=== PATIENT | female | born 1970 | race Caucasian/White ===

== ENCOUNTER 2020-05-28 05:47 | Inpatient (IN) | payer OTHER, SELFPAY ==
[~2020-05-28] VITALS: Ht 170.2 cm; Wt 111.6 kg
[2020-05-28] VITALS (15 sets, daily range): BP systolic 89–156
--- NOTE | 2020-05-28 05:50 | NUR ---
Placed in room 5 . Placed on cardiac specialist, blood pressure machine and pulse oximeter. To gown for exam. Side rails up. Report given to VERONICA WANG.
--- NOTE | 2020-05-28 05:50 | NUR ---
# 18 gauge angiocath placed to RAC. Use of asceptic technique. Opsite placed over site. Blood return noted. Blood, blood cultures, lactic for lab drawn from site. Flushed with 10 cc of normal saline. No evidence of infiltration noted. Patient tolerated well.
--- NOTE | 2020-05-28 05:55 | NUR ---
ER Dr. tariq at bedside examining patient.
[2020-05-28] MEDS ORDERED: NACL 0.9% 3,000 ML IV ONE (06:00)
[2020-05-28] MEDS ORDERED: ONDANSETRON HCL 4 MG/2 ML VIAL IVP ONE (06:00)
[2020-05-28] MEDS ORDERED: VANCOMYCIN HCL 1,000 MG in NS 250 ML IV ONE (06:00)
[2020-05-28] MEDS ORDERED: LIDOCAINE 1% 10 MG/ML, 20 ML MDV INJ ONE (06:00)
[2020-05-28] MEDS ORDERED: KETOROLAC TROMETHAMINE 30 MG VIAL IVP ONE (06:00)
--- NOTE | 2020-05-28 06:00 | NUR ---
PT BIB AMBULANCE. PT C/O SOB AND BUTTOCK PAIN. +TACHYPNEA. 02 SATURATION 96% ON ROOM AIR. PT DENIES ANY CHEST PAIN. PT DIAPHORETIC. PT C/O NAUSEA AND VOMITING X 3 DAYS. +NAUSEA NO EPISODES OF VOMITING IN ER. HX OF METH ABUSE. LAST USE 3 YEARS AGO. SAFETY PRECAUTIONS IN PLACE MAUDE CONITUE TO MONITOR.
--- NOTE | 2020-05-28 06:06 | NUR ---
Dr. Campos and female nurse Marylou, RN at bedside performing I & D on abscess on right buttcheek.
--- NOTE | 2020-05-28 06:22 | NUR ---
I&D Procedure done by Dr LAGUERRE to RIGHT BUTTCHEEK using sterile technique. Lidocaine 1% used. Wound packed with 1INCH IODOFORM PACKING . Adaptic, 4x4 and jose to wound. MODERATE amt of bleeding noted WITH PUS. Wound care discussed w/ patient. Pt tolerated procedure well.
[2020-05-28 06:29] LABS: BASOPHILS # (AUTO) 0.1 K/uL (0.0-0.2); BASOPHILS % (AUTO) 0.4 % (0.0-2.0); EOSINOPHILS % (AUTO) 0.1 % (0.0-4.0); HEMATOCRIT 49.2 % (36-48); HEMOGLOBIN 16.3 g/dL (12.0-16.0); LYMPHOCYTES # (AUTO) 1.2 K/uL (1.0-5.5); LYMPHOCYTES % (AUTO) 6.4 % (20.5-51.5); MEAN CORPUSCULAR HEMOGLOBIN 29 pg (27-31); MEAN CORPUSCULAR HGB CONC 33 % (32-36); MEAN CORPUSCULAR VOLUME 87 fL (79.0-98.0); MONOCYTES % (AUTO) 5.3 % (1.7-9.3); NEUTROPHILS # (AUTO) 16.3 K/uL (1.8-7.7); NEUTROPHILS % (AUTO) 87.8 % (40.0-70.0); PLATELET COUNT (AUTO) 493 K/uL (130-430); RED BLOOD CELL COUNT(AUTO) 5.65 MIL/uL (4.2-6.2); RED CELL DISTRIBUTION WIDTH 13.3 % (9.0-15.0); WHITE BLOOD COUNT (AUTO) 18.5 K/uL (4.8-10.8)
[2020-05-28 06:46] LABS: ALBUMIN 2.6 g/dL (3.4-4.8); CALCIUM 9.4 mg/dL (8.4-11.0); CREATININE 1.97 mg/dL (0.55-1.30); POTASSIUM 3.6 mmol/L (3.5-5.1); TOTAL BILIRUBIN 0.9 mg/dL (0.0-1.0)
[2020-05-28] MEDS ORDERED: INSULIN REGULAR, HUMAN 100 UNITS in NS 99 ML IV ONE ×2 (07:00)
[2020-05-28] MEDS ORDERED: VANCOMYCIN HCL 1000 MG/VIAL IV ONE (07:05)
--- NOTE | 2020-05-28 07:20 | NUR ---
MRSA SWAB COLLECTED AND SENT TO LAB.
--- NOTE | 2020-05-28 07:40 | NUR ---
PT LAYING IN BED. NO SIGNS OR SYMPTOMS OF DISTRESS NOTED. SBAR REPORT GIVEN TO SVEN WANG. CARE ENDORSED.
[2020-05-28 09:23] LABS: BILIRUBIN,URINE 3+ (NEGATIVE); BLOOD, URINE 3+ (NEGATIVE); CLARITY/URINE SL CLOUDY (CLEAR); COLOR,URINE YELLOW (YELLOW); GLUCOSE,URINE TRACE (NEGATIVE); KETONES,URINE 2+ (NEGATIVE); LEUKOCYTE ESTERASE ,URINE TRACE (NEGATIVE); NITRITE, URINE NEGATIVE (NEGATIVE); PROTEIN URINE 1+ (NEGATIVE)
--- NOTE | 2020-05-28 09:55 | NUR ---
Dr. Giron at bedside for evaluation
[2020-05-28] MEDS ORDERED: NACL 0.9% 1,000 ML IV SCH (10:15)
[2020-05-28] MEDS ORDERED: INSULIN REGULAR, HUMAN 100 UNITS in NS 99 ML IV PRN ×4 (10:15→12:15)
[2020-05-28] MEDS ORDERED: DEXTROSE 50% JECT 50 ML DISP.SYRIN IVP PRN ×2 (10:15→12:15)
[2020-05-28 10:30] LABS: BACTERIA,URINE MODERATE /HPF (None Seen); RBC,URINE 20-50 /HPF (0-3); YEAST,URINE Few /HPF (None Seen)
[2020-05-28] MEDS ORDERED: MUPIROCIN 2% TOPICAL OINTMENT 22 GM NS PRN (10:30)
[2020-05-28] MEDS ORDERED: ONDANSETRON HCL 4 MG/2 ML VIAL IVP PRN (10:30)
[2020-05-28] MEDS ORDERED: ACETAMINOPHEN 325 MG TABLET PO PRN (10:30)
[2020-05-28] MEDS ORDERED: MAGNESIUM SULFATE 50 ML IV PRN (10:30)
[2020-05-28] MEDS ORDERED: POTASSIUM CHLORIDE 20 MEQ TAB.PRT.SR PO PRN (10:30)
[2020-05-28] MEDS ORDERED: ZOLPIDEM TARTRATE 5 MG TABLET PO PRN (10:30)
[2020-05-28] MEDS ORDERED: LORazepam 2 MG/ML VIAL IVP PRN (10:30)
[2020-05-28] MEDS ORDERED: DOCUSATE SODIUM 100 MG CAPSULE PO PRN (10:30)
--- NOTE | 2020-05-28 10:50 | NUR ---
TO ICU. RECEIVED PT IN ROOM 5 VIA GURNEY, TRANSFERRED TO HER BED, PT ABLE TO MOVE INDEPENDENTLY, ON ROOM AIR, HEARD LAUGHING WITH THE ER STAFF, IV IN RIGHT A/C AND LEFT WRIST, IV VANCOMYCIN INFUSING, INSULIN DRIP AT 10 UNIT PER HR. DIRECTOR CONSUMER AFFAIRS ARRIVED IN THE UNIT, INSULIN OFF. BLOOD SAMPLE DRAWN AND SENT TO LAB FOR TEST.
[2020-05-28 11:09] LABS: BASOPHILS # (AUTO) 0.2 K/uL (0.0-0.2); BASOPHILS % (AUTO) 1.2 % (0.0-2.0); HEMATOCRIT 48.5 % (36-48); HEMOGLOBIN 15.9 g/dL (12.0-16.0); LYMPHOCYTES # (AUTO) 1.1 K/uL (1.0-5.5); LYMPHOCYTES % (AUTO) 5.5 % (20.5-51.5); MEAN CORPUSCULAR HEMOGLOBIN 29 pg (27-31); MEAN CORPUSCULAR HGB CONC 33 % (32-36); MEAN CORPUSCULAR VOLUME 88 fL (79.0-98.0); MONOCYTES # (AUTO) 1.6 K/uL (0.0-1.0); MONOCYTES % (AUTO) 8.1 % (1.7-9.3); NEUTROPHILS # (AUTO) 16.7 K/uL (1.8-7.7); NEUTROPHILS % (AUTO) 85.2 % (40.0-70.0); PLATELET COUNT (AUTO) 426 K/uL (130-430); RED BLOOD CELL COUNT(AUTO) 5.52 MIL/uL (4.2-6.2); RED CELL DISTRIBUTION WIDTH 13.2 % (9.0-15.0); WHITE BLOOD COUNT (AUTO) 19.6 K/uL (4.8-10.8)
--- NOTE | 2020-05-28 11:17 | NUR ---
FSBS. BLOOD SUGAR READING HI. REGULAR INSULIN RESUMED AT 10 UNIT PER HR.
[2020-05-28 11:27] LABS: ACETONE, SERUM LARGE (NEGATIVE)
[2020-05-28 11:29] LABS: ANION GAP 27 (5-15); CALCIUM 9.2 mg/dL (8.4-11.0); CHLORIDE 89 mmol/L (98-107); CREATININE 1.85 mg/dL (0.55-1.30); POTASSIUM 3.8 mmol/L (3.5-5.1); SODIUM SERUM 125 mmol/L (136-145); UREA NITROGEN, BLOOD 41 mg/dL (8-21)
--- NOTE | 2020-05-28 11:30 | NUR ---
PAGERenea CUMMINGS AT [phone] WITH A CONSULT
[2020-05-28 11:32] LABS: ALANINE AMINOTRANSFERASE 14 U/L (12-78); ASPARTATE AMINOTRANSFERASE 11 U/L (10-37); PHOSPHORUS 4.6 mg/dL (2.7-4.5); TOTAL BILIRUBIN 0.9 mg/dL (0.0-1.0)
--- NOTE | 2020-05-28 11:35 | NUR ---
CALLED DR. CORTÉS WITH A CONSULT, SPOKE WITH RODOLFO FROM [facility]
[2020-05-28 11:38] LABS: GFR AFRICAN AMERICAN 37 mL/min (>90)
--- NOTE | 2020-05-28 11:40 | NUR ---
CALLED DR. BEE WITH A CONSULT, SPOKE WITH MALA FROM [facility]
[2020-05-28 11:41] LABS: GLUCOSE 672 mg/dL (70-99)
[2020-05-28] MEDS: cefTRIAXone 1 GM in D5W 50 ML IV SCH (11:57)
[2020-05-28 12:05] LABS: ALBUMIN 2.3 g/dL (3.4-4.8)
[2020-05-28 12:09] LABS: ERYTHROCYTE SEDIMENTATION RATE 70 MM/HR (0-20)
--- NOTE | 2020-05-28 12:52 | NUR ---
FSBS. BLOOD SUGAR READING HI, REGULAR INSULIN REMAINS AT 10 UNIT PER HR.
--- NOTE | 2020-05-28 13:00 | NUR ---
IV. IV CATHETER IN RIGHT A/C KINKED AND D/CD. ANOTHER IV ACCESS INSERTED IN RIGHT WRIST USING 20 GAUGE CATHETER, GOOD BLOOD RETURN NOTED.
--- NOTE | 2020-05-28 13:53 | NUR ---
FSBS BLOOD SUGAR READING 567, INSULIN DRIP AT 10 UNIT PER HR.
[2020-05-28] MEDS ORDERED: CLINDAMYCIN 600 MG in D5W 50 ML IV ONE (15:00)
--- NOTE | 2020-05-28 15:11 | NUR ---
FSBS BLOOD SUGAR READING 463 MG/DL, INSULIN DRIP AT 10 UNIT PER HR.
[2020-05-28 15:38] LABS: CALCIUM 8.2 mg/dL (8.4-11.0); CREATININE 1.59 mg/dL (0.55-1.30); POTASSIUM 3.1 mmol/L (3.5-5.1)
[2020-05-28 15:45] LABS: PROTHROMBIN TIME 10.3 SECS (9.5-12.5)
--- NOTE | 2020-05-28 16:06 | NUR ---
Witnessed IV drip titration: Insulin drip titrated to 8 units/hr.
[2020-05-28] MEDS: POTASSIUM CHLORIDE 40 MEQ, LIDOCAINE JECT 2% PF 100 MG 50 MG in NS 250 ML IV PRN (16:36)
--- NOTE | 2020-05-28 16:36 | NUR ---
LOW K LEVEL. JORGE HUNG ORDERED, K LEVEL 3.1.
[2020-05-28] MEDS: NACL 0.9% 1,000 ML IV SCH (16:37)
--- NOTE | 2020-05-28 17:04 | NUR ---
Witnessed IV drip titration: Insulin drip titrated to 6 units/hr. BS - 291 MG/DL
--- NOTE | 2020-05-28 17:15 | NUR ---
TIME OUT. PICC NURSE AT BEDSIDE, VERIFIED PT'S INFORMATION AT BEDSIDE. CONSENT GIVEN BY PATIENT.
--- NOTE | 2020-05-28 18:55 | NUR ---
Witnessed IV drip titration: Insulin drip titrated to 6 units/hr. BS - 223 MG/DL.
--- NOTE | 2020-05-28 19:25 | NUR ---
OPENING NOTE Received SBAR report from off coming RN for continuity of care.
[2020-05-28] MEDS: FLUCONAZOLE 100 mg/ NS 50 ML IV SCH (20:00)
--- NOTE | 2020-05-28 20:00 | NUR ---
Pt laying in bed, alert and oriented x 4. Pt denies any pain or discomfort at the moment. Pt is cooperative and follows commands. Pt stating she is tired and thirsty. Provided water and ensured adequate environment for rest. Pt on RA with oxygen saturations above 90%. Right upper arm PICC line in place, insulin gtt infusing @ 2 units/hr, NS infusing @ 100 ml/hr. Pt self turning and repositioning. Will continue to monitor and assess.
[2020-05-28 20:01] LABS: BARBITURATE, URINE NEGATIVE (NEG <=200); BENZODIAZEPINE, URINE POSITIVE (NEG <=150); CANNABINOID, URINE NEGATIVE (NEG <=50); COCAINE, URINE NEGATIVE (NEG <=150); METHAMPHETAMINES SCREEN,URINE NEGATIVE (NEG <=500); OPIATE, URINE NEGATIVE (NEG <=100); PHENCYCLIDINE SCREEN,URINE NEGATIVE (NEG <=25); URINE AMPHETAMINE NEGATIVE (NEG <=500); URINE METHADONE NEGATIVE (NEG <=200); URINE OXYCODONE SCREEN NEGATIVE (NEG <=100)
[2020-05-28 20:02] LABS: UR TRICYCLIC ANTIDEPRESSANTS NEGATIVE (NEG <=300); URINE PROPOXYPHENE SCREEN NEGATIVE (NEG <=300)
--- NOTE | 2020-05-28 20:05 | NUR ---
INSULIN DRIP TITRATION BS 182. WITNESSED OSCAR WANG TITRATE INSULIN DRIP TO 2 UNITS/HR PER ORDERS. WILL CONTINUE TO MONITOR PT.
[2020-05-28 20:12] LABS: CALCIUM 8.5 mg/dL (8.4-11.0); CREATININE 1.23 mg/dL (0.55-1.30); POTASSIUM 3.1 mmol/L (3.5-5.1)
[2020-05-28 20:45] LABS: C-REACTIVE PROTEIN QUANT 29.2 mg/dL (0-0.5)
[2020-05-28] MEDS: HEPARIN SODIUM,PORCINE 5,000 UNITS/ML VIAL SUBCUT SCH (21:18)
--- NOTE | 2020-05-28 21:57 | NUR ---
PAGED DR. CAT: Number dialed [phone] Cat in regards to K lab and PRN order.
--- NOTE | 2020-05-28 22:00 | NUR ---
DR. BUNNY Tatum is manager transportation for Dr. Cat, spoke with Dr. Tatum in regards to K 3.1 since PRN order of KCL 40 MEQ, lidocaine jet 50 mg in 250 ml of NS is not available during NOC shift. Obtained telephone order for 40 MEQ KCL PO, read back to verify order. Will call back provider for verification and follow through with order as ordered.
--- NOTE | 2020-05-28 22:03 | NUR ---
HIGH ALERT NOTE: Called Dr. Tatum back at [phone] identified within the medical roster to verify physician authenticity.
[2020-05-28] MEDS ORDERED: POTASSIUM CHLORIDE 20 MEQ TAB.PRT.SR PO ONE (22:15)
[2020-05-28] MEDS: CLINDAMYCIN 600 MG in D5W 50 ML IV SCH (22:17)
[2020-05-28 23:22] LABS: CALCIUM 8.2 mg/dL (8.4-11.0); CREATININE 1.1 mg/dL (0.55-1.30); POTASSIUM 3.6 mmol/L (3.5-5.1)
[2020-05-29] VITALS (21 sets, daily range): BP systolic 109–166
--- NOTE | 2020-05-29 | NUR ---
INSULIN DRIP TITRATION BS 226. WITNESSED OSCAR WANG TITRATE INSULIN DRIP TO 5 UNITS/HR PER ORDERS. WILL CONTINUE TO MONITOR PT.
[2020-05-29] MEDS: NACL 0.9% 1,000 ML IV SCH ×2 (00:15→05:57)
--- NOTE | 2020-05-29 02:00 | NUR ---
INSULIN DRIP TITRATION BS 149. WITNESSED OSCAR WANG TITRATE INSULIN DRIP TO 1 UNIT/HR PER ORDERS. WILL CONTINUE TO MONITOR PT.
--- NOTE | 2020-05-29 03:00 | NUR ---
INSULIN DRIP TITRATION BS 187. WITNESSED OSCAR WANG TITRATE INSULIN DRIP TO 2 UNIT/HR PER ORDERS. WILL CONTINUE TO MONITOR PT.
[2020-05-29 03:16] LABS: CALCIUM 8.5 mg/dL (8.4-11.0); POTASSIUM 3.8 mmol/L (3.5-5.1)
[2020-05-29] MEDS: CLINDAMYCIN 600 MG in D5W 50 ML IV SCH ×2 (05:03→14:32)
[2020-05-29 05:26] LABS: CALCIUM 8.4 mg/dL (8.4-11.0); CREATININE 0.98 mg/dL (0.55-1.30); POTASSIUM 3.5 mmol/L (3.5-5.1)
[2020-05-29 05:48] LABS: BASOPHILS # (AUTO) 0.1 K/uL (0.0-0.2); BASOPHILS % (AUTO) 0.7 % (0.0-2.0); EOSINOPHILS % (AUTO) 0.1 % (0.0-4.0); HEMATOCRIT 39.5 % (36-48); HEMOGLOBIN 13.3 g/dL (12.0-16.0); LYMPHOCYTES # (AUTO) 1.3 K/uL (1.0-5.5); LYMPHOCYTES % (AUTO) 10.2 % (20.5-51.5); MEAN CORPUSCULAR HEMOGLOBIN 28 pg (27-31); MEAN CORPUSCULAR HGB CONC 34 % (32-36); MEAN CORPUSCULAR VOLUME 84 fL (79.0-98.0); MONOCYTES # (AUTO) 0.9 K/uL (0.0-1.0); MONOCYTES % (AUTO) 7.3 % (1.7-9.3); NEUTROPHILS # (AUTO) 10.3 K/uL (1.8-7.7); NEUTROPHILS % (AUTO) 81.7 % (40.0-70.0); PLATELET COUNT (AUTO) 327 K/uL (130-430); RED BLOOD CELL COUNT(AUTO) 4.71 MIL/uL (4.2-6.2); WHITE BLOOD COUNT (AUTO) 12.6 K/uL (4.8-10.8)
--- NOTE | 2020-05-29 06:00 | NUR ---
INSULIN DRIP TITRATION BS 282. WITNESSED OSCAR WANG TITRATE INSULIN DRIP TO 6 UNITS/HR PER ORDERS. WILL CONTINUE TO MONITOR PT.
--- NOTE | 2020-05-29 07:27 | NUR ---
CLOSING NOTE: Endorsed SBAR report to oncoming RN for continuity of care.
--- NOTE | 2020-05-29 07:30 | NUR ---
Opening Note Received bedside report from endorsing RN for continuation of care. Received patient awake and resting in bed, patient denies any pain or SOB at this time. No signs or symptoms of acute distress noted. Bed locked in lowest position, bed alarm on, and call light within reach. Education provided on use of call light. Fall and safety precautions in place.
[2020-05-29] MEDS: HEPARIN SODIUM,PORCINE 5,000 UNITS/ML VIAL SUBCUT SCH (08:10)
--- NOTE | 2020-05-29 08:15 | NUR ---
Witness insulin drip titration to 5 units/hr
--- NOTE | 2020-05-29 08:40 | NUR ---
Dr. Mills at bedside examining patient. No new orders.
--- NOTE | 2020-05-29 08:49 | NUR ---
Dr. Edmond at bedside examining patient. No new orders.
[2020-05-29] MEDS ORDERED: PANTOPRAZOLE SODIUM 40 MG/VIAL (PROTONIX) IVP SCH (09:00)
--- NOTE | 2020-05-29 09:30 | NUR ---
Witness insulin drip titration to 2 units/hr
[2020-05-29] MEDS: cefTRIAXone 1 GM in D5W 50 ML IV SCH (10:18)
--- NOTE | 2020-05-29 10:34 | NUR ---
Case mgt: Faxing clinical information to [facility] fax#[phone] and calling them at [phone]-- KATHLEEN
--- NOTE | 2020-05-29 10:41 | NUR ---
Case mgt: Per nurse Yaya, pt's blood sugar still fluctuation and insulin drip is requiring titration at this time. Yaya made aware this is [facility] pt--need transfer order to [facility] from [facility] once pt is stable. I s/w Chapito at [facility] and she said they received clinicals I faxed and auth'd ICU inpt stay with auth#[id number] and I made Chapito aware no transfer order at this time. Per Chapito, GUY is assigned as welfare case worker. MARY RN
--- NOTE | 2020-05-29 10:48 | NUR ---
Nutrition Update Brian Scale 16 noted. Pt admitted for DKA. Diet: clear liquid, CCHO low carb-45 gm BMI: 38.7 kg/m2 RD to follow per nutrition care standards.
[2020-05-29 11:06] LABS: CALCIUM 8.5 mg/dL (8.4-11.0); CREATININE 0.83 mg/dL (0.55-1.30); POTASSIUM 3.5 mmol/L (3.5-5.1)
--- NOTE | 2020-05-29 11:10 | NUR ---
2D ECHO 2D ECHO being done at bedside by photogrammetric technician.
--- NOTE | 2020-05-29 11:27 | NUR ---
Case mgt: Rec'd call back from Herbie at [facility] [phone]--Insulin drip down to 2ml/hr and last FE=311 per nurse Neida-I asked Neida to call to see if pt stable for transfer to [place]-- RN
--- NOTE | 2020-05-29 11:38 | NUR ---
Case mgt: Rec'd order for transfer to [place]--nurse Neida checking to see which level of care needed for pt and if insulin drip will be dc'd--faxing order to [facility] at [phone]
--- NOTE | 2020-05-29 13:15 | NUR ---
Witness insulin drip titration to 5 units/hr
--- NOTE | 2020-05-29 13:17 | NUR ---
Assisted patient to sit up for lunch. All needs met.
--- NOTE | 2020-05-29 14:11 | NUR ---
Case mgt: Per FIDELIA Albright back up to 202--insulin drip titrated back up to 5 units/hr (previously at 2 units/hr)--Rec'd transfer order to transfer to [facility] ICU on insulin drip-faxed order to [place] [facility] and calling Herbie at [facility] [phone] to inform her of order--MARY WANG Addendum: 05/29/20 at 1424 by Naheed Spears RN I s/w Herbie at [facility]-re: transfer order--she will work on it and aware pt on insulin drip--I faxed Covid-19 results (neg) and nurse Carrasquillo confirming with pt that she is agreeable to transfer to [facility] hospital. MARY WANG
[2020-05-29 15:46] LABS: CALCIUM 8.7 mg/dL (8.4-11.0); CREATININE 0.93 mg/dL (0.55-1.30); POTASSIUM 3.3 mmol/L (3.5-5.1)
--- NOTE | 2020-05-29 15:50 | NUR ---
Witness insulin drip titration to 2 units/hr
--- NOTE | 2020-05-29 16:24 | NUR ---
Transfer packet taken to ICU nurse station--they will f/u with radiology for xray juana-MARY WANG
[2020-05-29] MEDS: POTASSIUM CHLORIDE 40 MEQ, LIDOCAINE JECT 2% PF 100 MG 50 MG in NS 250 ML IV PRN (17:06)
--- NOTE | 2020-05-29 17:35 | NUR ---
Dietitian Recommendations * Recommend continuing [facility] [place] diet * Encourage increase PO intakes LP, RD Please refer to Nutrition Assessment for details. Addendum: 05/29/20 at [address] Amended: Links added.
[2020-05-29] MEDS: FLUCONAZOLE 100 mg/ NS 50 ML IV SCH (17:59)
--- NOTE | 2020-05-29 18:00 | NUR ---
Witness insulin drip titration to 1 unit/hr
[2020-05-29 18:20] LABS: CALCIUM 8.4 mg/dL (8.4-11.0); CREATININE 0.64 mg/dL (0.55-1.30); POTASSIUM 3.7 mmol/L (3.5-5.1)
--- NOTE | 2020-05-29 18:34 | NUR ---
Transfer Report to [facility] Report given to Lesly at 1834 via phone.
--- NOTE | 2020-05-29 18:45 | NUR ---
Witness insulin drip titration to 2 units/hr.
--- NOTE | 2020-05-29 19:14 | NUR ---
Closing Note Endorsed bedside report to oncoming RN using SBAR approach for continuation of care.
--- NOTE | 2020-05-29 19:45 | NUR ---
PERSONNEL FROM [facility] HERE TO EGG SMELLER PT. REPORT GIVEN.
--- NOTE | 2020-05-29 20:15 | NUR ---
PT TO BE TRANSFERRED TO [facility], RM 2314. PT BROUGHT VIA GURNEY TO AMBULANCE WITH ALL BELONGINGS IN SATISFACTORY CONDITION.
[2020-05-29] MEDS ORDERED: ENOXAPARIN SODIUM 30 MG/0.3 ML SYRINGE SUBCUT SCH (21:00)
== END 2020-05-29 20:15 | disposition short-term general hospital (02) | DRG 871 ==
LOC: SED 05:47 → SIC 10:09
PROVIDERS: ADMIT General Practice; ATTEND General Practice
PROC: 02HV33Z Insertion of Infusion Device into Superior Vena Cava, Percutaneous Approach (ICD-10-PCS; principal; 2020-05-28)
PROC: 0H98XZZ Drainage of Buttock Skin, External Approach (ICD-10-PCS; 2020-05-28)
DX: A41.9 Sepsis, unspecified organism (principal); E11.10 Type 2 diabetes mellitus with ketoacidosis without coma; E43 Unspecified severe protein-calorie malnutrition; N17.0 Acute kidney failure with tubular necrosis; B37.49 Other urogenital candidiasis; E66.2 Morbid (severe) obesity with alveolar hypoventilation; I42.9 Cardiomyopathy, unspecified; L02.31 Cutaneous abscess of buttock; Z68.42 Body mass index [BMI] 45.0-49.9, adult; E87.1 Hypo-osmolality and hyponatremia; F17.210 Nicotine dependence, cigarettes, uncomplicated; F15.10 Other stimulant abuse, uncomplicated; F41.9 Anxiety disorder, unspecified; J44.9 Chronic obstructive pulmonary disease, unspecified; N61.1 Abscess of the breast and nipple; Z79.4 Long term (current) use of insulin; Z91.14 Patient's other noncompliance with medication regimen; Z91.19 Patient's noncompliance with other medical treatment and regimen; Z20.828 Contact with and (suspected) exposure to other viral communicable diseases
CPT/HCPCS: 36415; 36600; 71045; 80048; 80053; 80307; 81000-TC; 82009-TC; 82803-TC; 82962; 83036; 83605; 83735-TC; 84100-TC; 84484; 85025; 85379; 85610-TC; 85651-TC; 85730-TC; 86140; 87040-TC; 87081; 87086; 93005; 93306; 94010; 96365; 96375; 99291; J0696; J1450; J1815; J1885; J2405; J3370; J3480; J3490; J7050; J7060

== ENCOUNTER 2023-02-14 10:07 | Inpatient (IN) | payer OTHER ==
[2023-02-14] VITALS (20 sets, daily range): BP systolic 95–157; PULSE 120–139; RESP 17–39; TEMP 96.2–98.7; O2SAT 94–100
[~2023-02-14] VITALS: Ht 157.5 cm; Wt 117.7 kg
[2023-02-14] MEDS ORDERED: NACL 0.9% 2,000 ML IV ONE (10:30)
[2023-02-14 10:43] LABS: ABG O2 SAT% ESTIMATE 98.5 % (94.0-100.0); BLOOD GAS BASE EXCESS -29.8 mmol/L (-3.0-3.0); BLOOD GAS PO2 208.6 mmHg (75.0-100.0)
[2023-02-14 10:46] LABS: BLOOD GAS PCO2 13.7 mmHg (35.0-45.0); BLOOD GAS PH 6.874 (7.350-7.450)
[2023-02-14 10:47] LABS: ALLEN'S TEST POSITIVE (P); BLOOD GAS HCO3 2.5 mmol/L (21.0-27.0)
[2023-02-14] MEDS ORDERED: SODIUM BICARBONATE 8.4% JECT 150 MEQ in D5W 1,000 ML IVP STA (10:52)
[2023-02-14 11:01] LABS: BASOPHILS # (AUTO) 0.1 K/uL (0.0-0.2); BASOPHILS % (AUTO) 0.3 % (0.0-2.0); EOSINOPHILS % (AUTO) 0.1 % (0.0-4.0); HEMATOCRIT 39.3 % (36-48); HEMOGLOBIN 11.9 g/dL (12.0-16.0); LYMPHOCYTES # (AUTO) 1.9 K/uL (1.0-5.5); MEAN CORPUSCULAR HEMOGLOBIN 29 pg (27-31); MEAN CORPUSCULAR HGB CONC 30 % (32-36); MEAN CORPUSCULAR VOLUME 94 fL (79.0-98.0); MONOCYTES # (AUTO) 1.7 K/uL (0.0-1.0); MONOCYTES % (AUTO) 7.3 % (1.7-9.3); NEUTROPHILS # (AUTO) 19.7 K/uL (1.8-7.7); NEUTROPHILS % (AUTO) 84.3 % (40.0-70.0); PLATELET COUNT (AUTO) 668 K/uL (130-430); RED BLOOD CELL COUNT(AUTO) 4.17 MIL/uL (4.2-6.2); RED CELL DISTRIBUTION WIDTH 14.6 % (9.0-15.0)
[2023-02-14 11:22] LABS: WHITE BLOOD COUNT (AUTO) 23.4 K/uL (4.8-10.8)
[2023-02-14 11:24] LABS: ERYTHROCYTE SEDIMENTATION RATE 107 MM/HR (0-20); INR 1.1 (0.8-1.2); PROTHROMBIN TIME 11.6 SECS (9.5-12.5)
[2023-02-14] MEDS ORDERED: CLINDAMYCIN 900 mg/50mL D5W 50 ML IV ONE (11:30)
[2023-02-14] MEDS ORDERED: PIPERACILLIN/TAZO 3.375 GM in NS 50 ML IV ONE (11:30)
[2023-02-14] MEDS ORDERED: VANCOMYCIN HCL 1.25 GM/NS 250 ML IV ONE (11:30)
[2023-02-14] MEDS ORDERED: SODIUM BICARBONATE 8.4% JECT 50 MEQ/50 ML SYRINGE ONE ×2 (11:31→14:22)
[2023-02-14] MEDS ORDERED: PIPERACILLIN/TAZOBACTAM 3.375 GM/VIAL (ZOSYN) IV ONE (11:49)
[2023-02-14 11:57] LABS: ACETAMINOPHEN 15 ug/mL (1-30); ALANINE AMINOTRANSFERASE 30 U/L (12-78); ALBUMIN 1.8 g/dL (3.4-4.8); ANION GAP 22 (5-15); ASPARTATE AMINOTRANSFERASE 30 U/L (10-37); CHLORIDE 110 mmol/L (98-107); CREATININE 1.41 mg/dL (0.55-1.30); GFR AFRICAN AMERICAN 50 mL/min (>90); PHOSPHORUS 4.5 mg/dL (2.7-4.5); POTASSIUM 3.8 mmol/L (3.5-5.1); SALICYLATE 3 mg/dL (3-30); SODIUM SERUM 138 mmol/L (136-145); THYROID STIMULATING HORMONE 7.49 uIu/mL (0.36-3.74); TOTAL BILIRUBIN 0.2 mg/dL (0.0-1.0); TOTAL PROTEIN, SERUM 5.9 g/dL (6.4-8.3); UREA NITROGEN, BLOOD 17 mg/dL (8-21)
[2023-02-14 12:00] LABS: ALCOHOL, BLOOD < 3 mg/dL (<10); CALCIUM 6.8 mg/dL (8.4-11.0); CARBON DIOXIDE 6 mmol/L (23-29); GFR NON AFRICAN-AMERICAN 41 mL/min (>90); GLUCOSE 401 mg/dL (74-106)
[2023-02-14] MEDS ORDERED: POTASSIUM CHLORIDE 30 MEQ in NS 250 ML IV SCH (12:15)
[2023-02-14] MEDS ORDERED: KCL 20 mEq in D5/0.45NS 1000mL 1,000 ML IV SCH (12:15)
[2023-02-14] MEDS ORDERED: MAGNESIUM SULFATE 50 ML IV SCH (12:15)
[2023-02-14] MEDS ORDERED: KCL 10 mEq in 50 mL (PREMIX) 50 ML IV SCH (12:15)
[2023-02-14] MEDS ORDERED: POTASSIUM CHLORIDE 40 MEQ in NS 250 ML IV SCH ×2 (12:15→13:15)
[2023-02-14] MEDS ORDERED: DEXTROSE 50% JECT 50 ML DISP.SYRIN IVP PRN ×3 (12:15→13:15)
[2023-02-14] MEDS ORDERED: KCL 20 mEq in 100 mL (PREMIX) 100 ML IV SCH (12:15)
[2023-02-14] MEDS ORDERED: INSULIN REGULAR, HUMAN 100 UNITS in NS 99 ML IV PRN ×4 (12:15→13:15)
[2023-02-14] MEDS ORDERED: CALCIUM GLUCONATE 1 GM/10 ML VIAL IVP ONE (12:30)
[2023-02-14] MEDS ORDERED: LORazepam 2 MG/ML VIAL IVP PRN (13:15)
[2023-02-14] MEDS ORDERED: ZOLPIDEM TARTRATE 5 MG TABLET PO PRN (13:15)
[2023-02-14] MEDS ORDERED: MUPIROCIN 2% TOPICAL OINTMENT 22 GM NS PRN (13:15)
[2023-02-14] MEDS ORDERED: MORPHINE 2 MG/ML INJ. SYRINGE IVP PRN ×2 (13:15)
[2023-02-14] MEDS ORDERED: POTASSIUM CHLORIDE 20 MEQ TAB.PRT.SR PO PRN (13:15)
[2023-02-14] MEDS ORDERED: ACETAMINOPHEN 325 MG TABLET PO PRN (13:15)
[2023-02-14] MEDS ORDERED: NACL 0.9% 1,000 ML IV SCH (13:15)
[2023-02-14] MEDS ORDERED: MAGNESIUM SULFATE 50 ML IV PRN (13:15)
[2023-02-14] MEDS ORDERED: DOCUSATE SODIUM 100 MG CAPSULE PO PRN (13:15)
[2023-02-14 13:19] LABS: ABG O2 SAT% ESTIMATE 98.9 % (94.0-100.0); BLOOD GAS BASE EXCESS -29.2 mmol/L (-3.0-3.0); BLOOD GAS PO2 242.5 mmHg (75.0-100.0)
[2023-02-14 13:24] LABS: BLOOD GAS PH 6.893 (7.350-7.450)
[2023-02-14 13:25] LABS: ALLEN'S TEST POSITIVE (P); BLOOD GAS HCO3 2.6 mmol/L (21.0-27.0)
[2023-02-14 14:16] LABS: MEAN CORPUSCULAR HEMOGLOBIN 29 pg (27-31); MEAN CORPUSCULAR HGB CONC 30 % (32-36); MEAN CORPUSCULAR VOLUME 96 fL (79.0-98.0); RED BLOOD CELL COUNT(AUTO) 4.91 MIL/uL (4.2-6.2); RED CELL DISTRIBUTION WIDTH 15.6 % (9.0-15.0)
[2023-02-14 14:29] LABS: ACETONE, SERUM POSITIVE (NEGATIVE); PLATELET COUNT (AUTO) 837 K/uL (130-430); WHITE BLOOD COUNT (AUTO) 34.1 K/uL (4.8-10.8)
[2023-02-14 14:38] LABS: ALANINE AMINOTRANSFERASE 44 U/L (12-78); ALBUMIN 2.7 g/dL (3.4-4.8); ANION GAP 27 (5-15); ASPARTATE AMINOTRANSFERASE 144 U/L (10-37); CHLORIDE 99 mmol/L (98-107); CREATININE 1.94 mg/dL (0.55-1.30); GFR AFRICAN AMERICAN 35 mL/min (>90); PHOSPHORUS 6.5 mg/dL (2.7-4.5); POTASSIUM 5.3 mmol/L (3.5-5.1); SODIUM SERUM 131 mmol/L (136-145); TOTAL BILIRUBIN 0.3 mg/dL (0.0-1.0); TOTAL PROTEIN, SERUM 8.6 g/dL (6.4-8.3); UREA NITROGEN, BLOOD 24 mg/dL (8-21)
[2023-02-14] MEDS ORDERED: PHENYLEPHRINE HCL 100 MG in NS 240 ML IV PRN (14:45)
[2023-02-14 14:54] LABS: CARBON DIOXIDE 5 mmol/L (23-29)
[2023-02-14 14:55] LABS: GLUCOSE 513 mg/dL (74-106)
[2023-02-14 14:57] LABS: ATYPICAL LYMPHOCYTES % 0 % (0-0); BAND % (MANUAL) 15 % (0-6); BASOPHILS % (MANUAL) 0 % (0-2); EOSINOPHILS % (MANUAL) 0 % (0-7); LYMPHOCYTES % (MANUAL) 4 % (20-46); MONOCYTES % (MANUAL) 6 % (0-11); PLATELET ESTIMATE INCREASED (ADEQUATE); SMUDGE CELLS RARE
[2023-02-14] MEDS ORDERED: ETOMIDATE 20 MG/ 10 ML VIAL (AMIDATE) IVP ONE (15:00)
[2023-02-14] MEDS ORDERED: ROCURONIUM BROMIDE 10 MG/ML (ZEMURON) IV ONE (15:00)
[2023-02-14 15:09] LABS: HEMOGLOBIN A1C 12.31 % (<5.7)
[2023-02-14 16:07] LABS: ABG O2 SAT% ESTIMATE 99.5 % (94.0-100.0); BLOOD GAS BASE EXCESS -29.6 mmol/L (-3.0-3.0); BLOOD GAS PCO2 34.2 mmHg (35.0-45.0); BLOOD GAS PO2 432.6 mmHg (75.0-100.0)
[2023-02-14 16:14] LABS: ALLEN'S TEST POSITIVE (P); BLOOD GAS HCO3 5.1 mmol/L (21.0-27.0); BLOOD GAS PH 6.791 (7.350-7.450)
[2023-02-14] MEDS ORDERED: SODIUM BICARBONATE 8.4% JECT 50 MEQ/50 ML SYRINGE IVP ONE (17:00)
[2023-02-14] MEDS ORDERED: SILVER SULFADIAZINE 1%, 25 GM TOPICAL CREAM (SSD) TP ONE (17:15)
[2023-02-14] MEDS: PROPOFOL DRIP 100 ML IV PRN (18:22)
[2023-02-14 18:30] LABS: BLOOD, URINE 1+ (NEGATIVE); CLARITY/URINE CLOUDY (CLEAR); COLOR,URINE YELLOW (YELLOW); GLUCOSE,URINE NEGATIVE (NEGATIVE); KETONES,URINE TRACE (NEGATIVE); LEUKOCYTE ESTERASE ,URINE TRACE (NEGATIVE); NITRITE, URINE NEGATIVE (NEGATIVE); PROTEIN URINE 3+ (NEGATIVE); UROBILINOGEN,URINE 0.2 (0.2-1.0)
[2023-02-14 18:41] LABS: CALCIUM 9.2 mg/dL (8.4-11.0); CREATININE 2.43 mg/dL (0.55-1.30); POTASSIUM 4.7 mmol/L (3.5-5.1)
[2023-02-14] MEDS: D5/0.45 NS 1,000 ML IV SCH (18:45)
[2023-02-14 18:48] LABS: BARBITURATE, URINE NEGATIVE (NEG <=200); BENZODIAZEPINE, URINE POSITIVE (NEG <=150); CANNABINOID, URINE NEGATIVE (NEG <=50); COCAINE, URINE NEGATIVE (NEG <=150); METHAMPHETAMINES SCREEN,URINE NEGATIVE (NEG <=500); OPIATE, URINE NEGATIVE (NEG <=100); PHENCYCLIDINE SCREEN,URINE NEGATIVE (NEG <=25); URINE AMPHETAMINE NEGATIVE (NEG <=500); URINE METHADONE NEGATIVE (NEG <=200); URINE OXYCODONE SCREEN NEGATIVE (NEG <=100); URINE PROPOXYPHENE SCREEN NEGATIVE (NEG <=300)
[2023-02-14 18:49] LABS: UR TRICYCLIC ANTIDEPRESSANTS NEGATIVE (NEG <=300)
[2023-02-14] MEDS: CEFEPIME 2 GM in D5W 100 ML IV SCH (18:51)
[2023-02-14] MEDS: IPRATROPIUM/ALBUTEROL SULFATE 3 ML AMPUL.NEB (DUONEB) INH SCH (19:00)
[2023-02-14 19:09] LABS: BILIRUBIN,URINE NEGATIVE (NEGATIVE)
[2023-02-14 19:10] LABS: BACTERIA,URINE MODERATE /HPF (None Seen); URINE AMORPHOUS URATE 2+ /HPF (None Seen); YEAST,URINE Many /HPF (None Seen)
[2023-02-14 19:11] LABS: MUCUS,URINE None Seen /LPF (None Seen)
[2023-02-14] MEDS ORDERED: DIPH25CA83 PO (20:25)
[2023-02-14] MEDS ORDERED: SSNPH SQ (20:25)
[2023-02-14] MEDS ORDERED: ACET325C5 PO (20:25)
[2023-02-14] MEDS ORDERED: LIDOINT TP (20:25)
[2023-02-14] MEDS ORDERED: GLIP5TAB13 PO (20:25)
[2023-02-14] MEDS: HEPARIN SODIUM,PORCINE 5,000 UNITS/ML VIAL SUBCUT SCH (20:44)
[2023-02-14] MEDS: LACTULOSE 20 GM/30 ML UDC PO SCH (20:59)
[2023-02-14] MEDS: HONEY WOUND DRESSING 1 EACH TP SCH (21:00)
[2023-02-14] MEDS: SILVER SULFADIAZINE 1%, 25 GM TOPICAL CREAM (SSD) TP SCH (21:00)
[2023-02-14 21:24] LABS: ABG O2 SAT% ESTIMATE 99.6 % (94.0-100.0); BLOOD GAS PCO2 23.7 mmHg (35.0-45.0); BLOOD GAS PO2 315.4 mmHg (75.0-100.0)
[2023-02-14 21:28] LABS: ALLEN'S TEST POSITIVE (P); BLOOD GAS HCO3 9.1 mmol/L (21.0-27.0); BLOOD GAS PH 7.201 (7.350-7.450)
[2023-02-15] VITALS (35 sets, daily range): BP systolic 104–163; PULSE 110–134; RESP 28–37; TEMP 98–98.9; O2SAT 97–100
[2023-02-15] MEDS: CLINDAMYCIN 300 MG/50 ML D5W 50 ML IV SCH ×4 (00:03→18:09)
[2023-02-15 00:07] LABS: CALCIUM 9.5 mg/dL (8.4-11.0); CREATININE 2.72 mg/dL (0.55-1.30); POTASSIUM 3.9 mmol/L (3.5-5.1)
[2023-02-15] MEDS: IPRATROPIUM/ALBUTEROL SULFATE 3 ML AMPUL.NEB (DUONEB) INH SCH ×4 (01:00→19:34)
[2023-02-15 02:36] LABS: CALCIUM 9.4 mg/dL (8.4-11.0); CREATININE 2.92 mg/dL (0.55-1.30)
[2023-02-15] MEDS: D5/0.45 NS 1,000 ML IV SCH ×2 (05:04→14:14)
[2023-02-15] MEDS: PROPOFOL DRIP 100 ML IV PRN ×3 (05:15→20:17)
[2023-02-15 06:50] LABS: BASOPHILS % (AUTO) 0.2 % (0.0-2.0); EOSINOPHILS % (AUTO) 0.2 % (0.0-4.0); HEMATOCRIT 39.1 % (36-48); HEMOGLOBIN 12.2 g/dL (12.0-16.0); LYMPHOCYTES # (AUTO) 1.2 K/uL (1.0-5.5); LYMPHOCYTES % (AUTO) 5.3 % (20.5-51.5); MEAN CORPUSCULAR HEMOGLOBIN 28 pg (27-31); MEAN CORPUSCULAR HGB CONC 31 % (32-36); MEAN CORPUSCULAR VOLUME 91 fL (79.0-98.0); MONOCYTES # (AUTO) 2.5 K/uL (0.0-1.0); MONOCYTES % (AUTO) 11.7 % (1.7-9.3); NEUTROPHILS % (AUTO) 82.6 % (40.0-70.0); PLATELET COUNT (AUTO) 588 K/uL (130-430); RED BLOOD CELL COUNT(AUTO) 4.29 MIL/uL (4.2-6.2); RED CELL DISTRIBUTION WIDTH 14.8 % (9.0-15.0); WHITE BLOOD COUNT (AUTO) 21.8 K/uL (4.8-10.8)
[2023-02-15 07:10] LABS: CALCIUM 9.4 mg/dL (8.4-11.0); CREATININE 3.26 mg/dL (0.55-1.30); POTASSIUM 4.3 mmol/L (3.5-5.1)
[2023-02-15] MEDS: HONEY WOUND DRESSING 1 EACH TP SCH ×2 (08:19→21:24)
[2023-02-15] MEDS: LACTULOSE 20 GM/30 ML UDC PO SCH ×2 (08:19→21:20)
[2023-02-15] MEDS: SILVER SULFADIAZINE 1%, 25 GM TOPICAL CREAM (SSD) TP SCH ×2 (08:20→21:23)
[2023-02-15] MEDS: HEPARIN SODIUM,PORCINE 5,000 UNITS/ML VIAL SUBCUT SCH (08:23)
[2023-02-15 09:26] LABS: ABG O2 SAT% ESTIMATE 98.4 % (94.0-100.0); BLOOD GAS PCO2 21.2 mmHg (35.0-45.0); BLOOD GAS PO2 136.8 mmHg (75.0-100.0)
[2023-02-15 09:29] LABS: ALLEN'S TEST POSITIVE (P); BLOOD GAS BASE EXCESS -15.3 mmol/L (-3.0-3.0); BLOOD GAS HCO3 9.4 mmol/L (21.0-27.0); BLOOD GAS PH 7.264 (7.350-7.450)
[2023-02-15] MEDS ORDERED: SODIUM BICARBONATE 8.4% JECT 50 MEQ/50 ML SYRINGE IVP ONE (10:00)
[2023-02-15 10:39] LABS: CALCIUM 9.1 mg/dL (8.4-11.0); CREATININE 3.71 mg/dL (0.55-1.30)
[2023-02-15] MEDS ORDERED: *HEPARIN PER PHARMACY XX ONE (10:45)
[2023-02-15] MEDS ORDERED: HEPARIN SODIUM,PORCINE 3000 UNITS/0.6 ML BOLUS IVP PRN (11:15)
[2023-02-15] MEDS ORDERED: HEPARIN SODIUM,PORCINE 2000 UNITS/0.4 ML BOLUS IVP PRN (11:15)
[2023-02-15] MEDS: HEPARIN 25,000 UNITS in 250 ML PREMIX IV PRN (13:21)
[2023-02-15] MEDS: FLUCONAZOLE 100 mg/ NS 50 ML IV SCH (14:05)
[2023-02-15] MEDS ORDERED: FUROSEMIDE 20 MG/2 ML VIAL IVP ONE (14:15)
[2023-02-15] MEDS ORDERED: VANCOMYCIN HCL 1,000 MG in NS 250 ML IV SCH (15:00)
[2023-02-15 15:14] LABS: CALCIUM 9.2 mg/dL (8.4-11.0); CREATININE 4.05 mg/dL (0.55-1.30); POTASSIUM 3.7 mmol/L (3.5-5.1)
[2023-02-15] MEDS: CEFEPIME 2 GM in D5W 100 ML IV SCH (18:09)
[2023-02-15 18:24] LABS: CALCIUM 9.1 mg/dL (8.4-11.0); CREATININE 4.35 mg/dL (0.55-1.30); POTASSIUM 3.5 mmol/L (3.5-5.1)
[2023-02-15 22:28] LABS: CALCIUM 9.2 mg/dL (8.4-11.0); CREATININE 4.61 mg/dL (0.55-1.30); POTASSIUM 3.5 mmol/L (3.5-5.1)
[2023-02-16] VITALS (33 sets, daily range): BP systolic 118–157; PULSE 96–118; RESP 24–31; TEMP 96.8–98.6; O2SAT 97–100
[2023-02-16] MEDS: CLINDAMYCIN 300 MG/50 ML D5W 50 ML IV SCH ×2 (00:12→06:16)
[2023-02-16] MEDS: D5/0.45 NS 1,000 ML IV SCH ×3 (00:15→21:43)
[2023-02-16] MEDS: IPRATROPIUM/ALBUTEROL SULFATE 3 ML AMPUL.NEB (DUONEB) INH SCH ×3 (01:00→19:36)
[2023-02-16] MEDS: PROPOFOL DRIP 100 ML IV PRN ×5 (01:28→22:41)
[2023-02-16 04:52] LABS: BASOPHILS # (AUTO) 0.1 K/uL (0.0-0.2); BASOPHILS % (AUTO) 0.3 % (0.0-2.0); EOSINOPHILS % (AUTO) 0.3 % (0.0-4.0); HEMATOCRIT 34.5 % (36-48); HEMOGLOBIN 11.1 g/dL (12.0-16.0); LYMPHOCYTES # (AUTO) 1.5 K/uL (1.0-5.5); LYMPHOCYTES % (AUTO) 9.1 % (20.5-51.5); MEAN CORPUSCULAR HEMOGLOBIN 28 pg (27-31); MEAN CORPUSCULAR HGB CONC 32 % (32-36); MEAN CORPUSCULAR VOLUME 88 fL (79.0-98.0); MONOCYTES # (AUTO) 1.8 K/uL (0.0-1.0); MONOCYTES % (AUTO) 10.9 % (1.7-9.3); NEUTROPHILS # (AUTO) 13.1 K/uL (1.8-7.7); NEUTROPHILS % (AUTO) 79.4 % (40.0-70.0); PLATELET COUNT (AUTO) 578 K/uL (130-430); RED BLOOD CELL COUNT(AUTO) 3.91 MIL/uL (4.2-6.2); RED CELL DISTRIBUTION WIDTH 14.7 % (9.0-15.0); WHITE BLOOD COUNT (AUTO) 16.4 K/uL (4.8-10.8)
[2023-02-16 04:53] LABS: CALCIUM 8.9 mg/dL (8.4-11.0); CREATININE 5.02 mg/dL (0.55-1.30); POTASSIUM 3.6 mmol/L (3.5-5.1)
[2023-02-16 04:58] LABS: VANCOMYCIN,RANDOM 32.2 ug/mL
[2023-02-16] MEDS: LACTULOSE 20 GM/30 ML UDC PO SCH ×2 (08:12→21:44)
[2023-02-16] MEDS: HONEY WOUND DRESSING 1 EACH TP SCH ×2 (08:22→21:45)
[2023-02-16] MEDS: SILVER SULFADIAZINE 1%, 25 GM TOPICAL CREAM (SSD) TP SCH ×2 (08:22→21:44)
[2023-02-16 09:07] LABS: CALCIUM 8.9 mg/dL (8.4-11.0); CREATININE 5.36 mg/dL (0.55-1.30); POTASSIUM 3.4 mmol/L (3.5-5.1)
[2023-02-16 13:10] LABS: CALCIUM 8.7 mg/dL (8.4-11.0); CREATININE 5.58 mg/dL (0.55-1.30); POTASSIUM 3.3 mmol/L (3.5-5.1)
[2023-02-16] MEDS: FLUCONAZOLE 100 mg/ NS 50 ML IV SCH (14:26)
[2023-02-16] MEDS: LINEZOLID 300 ML IV SCH (15:53)
[2023-02-16] MEDS ORDERED: INSULIN REGULAR, HUMAN 10 UNITS/0.1 ML, 3 ML VIAL IVP ONE (16:00)
[2023-02-16 16:12] LABS: ABG O2 SAT% ESTIMATE 99.9 % (94.0-100.0); BLOOD GAS BASE EXCESS -13.7 mmol/L (-3.0-3.0); BLOOD GAS PCO2 22.6 mmHg (35.0-45.0); BLOOD GAS PO2 518.6 mmHg (75.0-100.0)
[2023-02-16 16:45] LABS: CREATININE 5.7 mg/dL (0.55-1.30); POTASSIUM 3.2 mmol/L (3.5-5.1)
[2023-02-16 18:14] LABS: BLOOD GAS HCO3 10.6 mmol/L (21.0-27.0)
[2023-02-16 18:15] LABS: ALLEN'S TEST POSITIVE (P)
[2023-02-16] MEDS ORDERED: HEPARIN SODIUM,PORCINE 5,000 UNITS/ML VIAL MC ONE (19:00)
[2023-02-16] MEDS: CEFEPIME 2 GM in D5W 100 ML IV SCH (19:11)
[2023-02-16 20:04] LABS: CALCIUM 8.7 mg/dL (8.4-11.0); CREATININE 4.24 mg/dL (0.55-1.30)
[2023-02-16 20:08] LABS: POTASSIUM 2.9 mmol/L (3.5-5.1)
[2023-02-17] VITALS (34 sets, daily range): BP systolic 109–168; PULSE 88–117; RESP 11–32; TEMP 97–98.6; O2SAT 96–100
[2023-02-17] MEDS: IPRATROPIUM/ALBUTEROL SULFATE 3 ML AMPUL.NEB (DUONEB) INH SCH ×4 (00:45→19:31)
[2023-02-17 01:57] LABS: CALCIUM 8.3 mg/dL (8.4-11.0); CREATININE 4.58 mg/dL (0.55-1.30); POTASSIUM 3.3 mmol/L (3.5-5.1)
[2023-02-17] MEDS: LINEZOLID 300 ML IV SCH ×2 (01:59→16:44)
[2023-02-17] MEDS: PROPOFOL DRIP 100 ML IV PRN ×4 (03:22→23:33)
[2023-02-17 06:13] LABS: BASOPHILS % (AUTO) 0.3 % (0.0-2.0); EOSINOPHILS # (AUTO) 0.1 K/uL (0.0-0.4); EOSINOPHILS % (AUTO) 0.6 % (0.0-4.0); HEMATOCRIT 30.6 % (36-48); LYMPHOCYTES # (AUTO) 1.5 K/uL (1.0-5.5); LYMPHOCYTES % (AUTO) 8.9 % (20.5-51.5); MEAN CORPUSCULAR HEMOGLOBIN 28 pg (27-31); MEAN CORPUSCULAR HGB CONC 33 % (32-36); MEAN CORPUSCULAR VOLUME 86 fL (79.0-98.0); MONOCYTES # (AUTO) 1.2 K/uL (0.0-1.0); MONOCYTES % (AUTO) 7.5 % (1.7-9.3); NEUTROPHILS # (AUTO) 13.6 K/uL (1.8-7.7); NEUTROPHILS % (AUTO) 82.7 % (40.0-70.0); PLATELET COUNT (AUTO) 499 K/uL (130-430); RED BLOOD CELL COUNT(AUTO) 3.54 MIL/uL (4.2-6.2); RED CELL DISTRIBUTION WIDTH 14.3 % (9.0-15.0); WHITE BLOOD COUNT (AUTO) 16.4 K/uL (4.8-10.8)
[2023-02-17 06:34] LABS: CALCIUM 8.6 mg/dL (8.4-11.0); CREATININE 4.88 mg/dL (0.55-1.30); POTASSIUM 3.1 mmol/L (3.5-5.1)
[2023-02-17] MEDS: D5/0.45 NS 1,000 ML IV SCH ×2 (06:37→16:45)
[2023-02-17 08:19] LABS: ABG O2 SAT% ESTIMATE 98.7 % (94.0-100.0); BLOOD GAS PCO2 23.2 mmHg (35.0-45.0); BLOOD GAS PO2 129.5 mmHg (75.0-100.0)
[2023-02-17 08:23] LABS: ALLEN'S TEST POSITIVE (P); BLOOD GAS BASE EXCESS -6.5 mmol/L (-3.0-3.0); BLOOD GAS HCO3 15.4 mmol/L (21.0-27.0)
[2023-02-17] MEDS: KCL 20 mEq in 100 mL (PREMIX) 100 ML IV SCH ×2 (09:05→10:58)
[2023-02-17] MEDS: LACTULOSE 20 GM/30 ML UDC PO SCH ×2 (09:05→20:39)
[2023-02-17] MEDS: INSULIN REGULAR, HUMAN 100 UNITS in NS 99 ML IV PRN ×2 (09:13)
[2023-02-17] MEDS: HONEY WOUND DRESSING 1 EACH TP SCH ×2 (09:19→20:42)
[2023-02-17] MEDS: SILVER SULFADIAZINE 1%, 25 GM TOPICAL CREAM (SSD) TP SCH ×2 (09:21→20:42)
[2023-02-17] MEDS ORDERED: INSULIN REGULAR, HUMAN 10 UNITS/0.1 ML, 3 ML VIAL IVP ONE (09:30)
[2023-02-17 09:46] LABS: CALCIUM 8.3 mg/dL (8.4-11.0); CREATININE 4.8 mg/dL (0.55-1.30)
[2023-02-17 10:01] LABS: THYROID STIMULATING HORMONE 5.51 uIu/mL (0.34-4.82)
[2023-02-17] MEDS: HEPARIN 25,000 UNITS in 250 ML PREMIX IV PRN ×2 (11:00→23:36)
[2023-02-17 14:04] LABS: CALCIUM 8.9 mg/dL (8.4-11.0); CREATININE 4.98 mg/dL (0.55-1.30)
[2023-02-17] MEDS: FLUCONAZOLE 100 mg/ NS 50 ML IV SCH (14:22)
[2023-02-17] MEDS ORDERED: HEPARIN SODIUM,PORCINE 5,000 UNITS/ML VIAL MC ONE (16:30)
[2023-02-17 20:00] LABS: ABG O2 SAT% ESTIMATE 98.8 % (94.0-100.0); BLOOD GAS BASE EXCESS -0.6 mmol/L (-3.0-3.0); BLOOD GAS HCO3 19.9 mmol/L (21.0-27.0); BLOOD GAS PCO2 23.5 mmHg (35.0-45.0)
[2023-02-17 20:04] LABS: ALLEN'S TEST POSITIVE (P); BLOOD GAS PH 7.545 (7.350-7.450)
[2023-02-17] MEDS: CEFEPIME 2 GM in D5W 100 ML IV SCH (20:17)
[2023-02-17 23:06] LABS: CALCIUM 8.8 mg/dL (8.4-11.0); CREATININE 3.15 mg/dL (0.55-1.30); POTASSIUM 3.1 mmol/L (3.5-5.1)
[2023-02-18] VITALS (32 sets, daily range): BP systolic 109–140; PULSE 102–115; RESP 12–32; TEMP 98–98.7; O2SAT 97–100
[2023-02-18] MEDS: IPRATROPIUM/ALBUTEROL SULFATE 3 ML AMPUL.NEB (DUONEB) INH SCH ×4 (02:15→19:53)
[2023-02-18] MEDS: D5/0.45 NS 1,000 ML IV SCH ×2 (03:59→23:32)
[2023-02-18] MEDS: LINEZOLID 300 ML IV SCH (04:00)
[2023-02-18 06:23] LABS: BASOPHILS % (AUTO) 0.2 % (0.0-2.0); EOSINOPHILS # (AUTO) 0.1 K/uL (0.0-0.4); EOSINOPHILS % (AUTO) 0.4 % (0.0-4.0); HEMATOCRIT 29.8 % (36-48); HEMOGLOBIN 9.8 g/dL (12.0-16.0); LYMPHOCYTES # (AUTO) 2.1 K/uL (1.0-5.5); LYMPHOCYTES % (AUTO) 9.4 % (20.5-51.5); MEAN CORPUSCULAR HEMOGLOBIN 28 pg (27-31); MEAN CORPUSCULAR HGB CONC 33 % (32-36); MEAN CORPUSCULAR VOLUME 86 fL (79.0-98.0); MONOCYTES # (AUTO) 2.1 K/uL (0.0-1.0); MONOCYTES % (AUTO) 9.4 % (1.7-9.3); NEUTROPHILS # (AUTO) 17.6 K/uL (1.8-7.7); NEUTROPHILS % (AUTO) 80.6 % (40.0-70.0); PLATELET COUNT (AUTO) 470 K/uL (130-430); RED BLOOD CELL COUNT(AUTO) 3.49 MIL/uL (4.2-6.2); RED CELL DISTRIBUTION WIDTH 13.9 % (9.0-15.0); WHITE BLOOD COUNT (AUTO) 21.9 K/uL (4.8-10.8)
[2023-02-18 06:44] LABS: CALCIUM 7.9 mg/dL (8.4-11.0); CREATININE 3.71 mg/dL (0.55-1.30)
[2023-02-18 07:09] LABS: POTASSIUM 2.9 mmol/L (3.5-5.1)
[2023-02-18] MEDS: HONEY WOUND DRESSING 1 EACH TP SCH ×2 (08:26→21:00)
[2023-02-18] MEDS: SILVER SULFADIAZINE 1%, 25 GM TOPICAL CREAM (SSD) TP SCH ×2 (08:27→21:00)
[2023-02-18] MEDS: LACTULOSE 20 GM/30 ML UDC PO SCH ×2 (08:28→21:00)
[2023-02-18] MEDS: PROPOFOL DRIP 100 ML IV PRN ×3 (08:32→18:50)
[2023-02-18] MEDS ORDERED: KCL 40mEq in D5/0.45NS 1000 mL 1,000 ML IV ONE (11:00)
[2023-02-18 11:28] LABS: ALBUMIN 1.5 g/dL (3.4-4.8); CALCIUM 7.9 mg/dL (8.4-11.0); CREATININE 4.2 mg/dL (0.55-1.30); TOTAL BILIRUBIN 0.4 mg/dL (0.0-1.0); TOTAL PROTEIN, SERUM 6.4 g/dL (6.4-8.3)
[2023-02-18 11:29] LABS: POTASSIUM 2.9 mmol/L (3.5-5.1)
[2023-02-18] MEDS: CLINDAMYCIN HCL 150 MG CAPSULE PO SCH ×2 (13:25→18:47)
[2023-02-18] MEDS: NAFCILLIN SODIUM 2 GM in NS 100 ML IV SCH ×2 (13:25→18:47)
[2023-02-18] MEDS: INSULIN REGULAR, HUMAN 100 UNITS in NS 99 ML IV PRN ×2 (13:30)
[2023-02-18] MEDS: HEPARIN 25,000 UNITS in 250 ML PREMIX IV PRN (13:32)
[2023-02-18] MEDS: FLUCONAZOLE 100 mg/ NS 50 ML IV SCH (14:42)
[2023-02-19] VITALS (35 sets, daily range): BP systolic 93–142; PULSE 76–108; RESP 27–36; TEMP 97.3–98.4; O2SAT 97–100
[2023-02-19] MEDS: NAFCILLIN SODIUM 2 GM in NS 100 ML IV SCH ×4 (00:42→17:34)
[2023-02-19] MEDS: CLINDAMYCIN HCL 150 MG CAPSULE PO SCH ×4 (00:42→17:34)
[2023-02-19] MEDS: HEPARIN 25,000 UNITS in 250 ML PREMIX IV PRN (02:15)
[2023-02-19 05:27] LABS: BASOPHILS # (AUTO) 0.1 K/uL (0.0-0.2); BASOPHILS % (AUTO) 0.2 % (0.0-2.0); EOSINOPHILS # (AUTO) 0.2 K/uL (0.0-0.4); EOSINOPHILS % (AUTO) 0.7 % (0.0-4.0); HEMATOCRIT 29.2 % (36-48); HEMOGLOBIN 9.6 g/dL (12.0-16.0); LYMPHOCYTES % (AUTO) 9.1 % (20.5-51.5); MEAN CORPUSCULAR HEMOGLOBIN 28 pg (27-31); MEAN CORPUSCULAR HGB CONC 33 % (32-36); MEAN CORPUSCULAR VOLUME 86 fL (79.0-98.0); MONOCYTES % (AUTO) 8.8 % (1.7-9.3); NEUTROPHILS # (AUTO) 18.1 K/uL (1.8-7.7); NEUTROPHILS % (AUTO) 81.2 % (40.0-70.0); PLATELET COUNT (AUTO) 488 K/uL (130-430); RED BLOOD CELL COUNT(AUTO) 3.39 MIL/uL (4.2-6.2); RED CELL DISTRIBUTION WIDTH 13.8 % (9.0-15.0); WHITE BLOOD COUNT (AUTO) 22.3 K/uL (4.8-10.8)
[2023-02-19 06:14] LABS: CALCIUM 7.9 mg/dL (8.4-11.0); CREATININE 5.33 mg/dL (0.55-1.30); POTASSIUM 3.8 mmol/L (3.5-5.1)
[2023-02-19] MEDS: IPRATROPIUM/ALBUTEROL SULFATE 3 ML AMPUL.NEB (DUONEB) INH SCH ×3 (07:22→19:48)
[2023-02-19] MEDS: LACTULOSE 20 GM/30 ML UDC PO SCH ×2 (08:49→22:12)
[2023-02-19] MEDS: INSULIN GLARGINE 100 UNITS/ML, 10 ML VIAL SUBCUT SCH (08:49)
[2023-02-19] MEDS: HONEY WOUND DRESSING 1 EACH TP SCH ×2 (08:49→21:00)
[2023-02-19] MEDS: SILVER SULFADIAZINE 1%, 25 GM TOPICAL CREAM (SSD) TP SCH ×2 (08:49→21:00)
[2023-02-19] MEDS: D5/0.45 NS 1,000 ML IV SCH ×2 (09:07→18:51)
[2023-02-19] MEDS: PROPOFOL DRIP 100 ML IV PRN ×2 (10:24→17:18)
[2023-02-19] MEDS: INSULIN LISPRO SLIDING SCALE 100 UNITS/ML, 3 ML VIAL (humaLOG) SUBCUT PRN ×3 (14:29→22:14)
[2023-02-19] MEDS: FLUCONAZOLE 100 mg/ NS 50 ML IV SCH (14:32)
[2023-02-19 17:06] LABS: QUANTIFERON TB GOLD Indeterminate (Negative)
[2023-02-20] VITALS (47 sets, daily range): BP systolic 95–140; PULSE 68–98; RESP 18–32; TEMP 97.6–98.4; O2SAT 97–100
[2023-02-20] MEDS: CLINDAMYCIN HCL 150 MG CAPSULE PO SCH ×4 (00:05→18:44)
[2023-02-20] MEDS: NAFCILLIN SODIUM 2 GM in NS 100 ML IV SCH ×4 (00:07→18:44)
[2023-02-20] MEDS: IPRATROPIUM/ALBUTEROL SULFATE 3 ML AMPUL.NEB (DUONEB) INH SCH ×4 (00:53→19:40)
[2023-02-20] MEDS: INSULIN LISPRO SLIDING SCALE 100 UNITS/ML, 3 ML VIAL (humaLOG) SUBCUT PRN ×5 (01:48→21:33)
[2023-02-20] MEDS: HEPARIN 25,000 UNITS in 250 ML PREMIX IV PRN ×2 (02:14→15:10)
[2023-02-20] MEDS: D5/0.45 NS 1,000 ML IV SCH (04:23)
[2023-02-20 04:57] LABS: BASOPHILS # (AUTO) 0.1 K/uL (0.0-0.2); BASOPHILS % (AUTO) 0.3 % (0.0-2.0); EOSINOPHILS # (AUTO) 0.4 K/uL (0.0-0.4); EOSINOPHILS % (AUTO) 2.3 % (0.0-4.0); HEMOGLOBIN 9.3 g/dL (12.0-16.0); LYMPHOCYTES # (AUTO) 2.6 K/uL (1.0-5.5); LYMPHOCYTES % (AUTO) 13.7 % (20.5-51.5); MEAN CORPUSCULAR HEMOGLOBIN 28 pg (27-31); MEAN CORPUSCULAR HGB CONC 32 % (32-36); MEAN CORPUSCULAR VOLUME 87 fL (79.0-98.0); MONOCYTES # (AUTO) 1.7 K/uL (0.0-1.0); MONOCYTES % (AUTO) 8.7 % (1.7-9.3); NEUTROPHILS # (AUTO) 14.4 K/uL (1.8-7.7); PLATELET COUNT (AUTO) 470 K/uL (130-430); RED BLOOD CELL COUNT(AUTO) 3.32 MIL/uL (4.2-6.2); WHITE BLOOD COUNT (AUTO) 19.2 K/uL (4.8-10.8)
[2023-02-20 05:13] LABS: CALCIUM 7.7 mg/dL (8.4-11.0); CREATININE 4.45 mg/dL (0.55-1.30); POTASSIUM 4.1 mmol/L (3.5-5.1)
[2023-02-20 07:07] LABS: HEPATITIS B SURFACE AG Negative (Negative)
[2023-02-20] MEDS: LACTULOSE 20 GM/30 ML UDC PO SCH ×2 (08:11→21:04)
[2023-02-20] MEDS: SILVER SULFADIAZINE 1%, 25 GM TOPICAL CREAM (SSD) TP SCH ×2 (08:13→21:13)
[2023-02-20] MEDS: HONEY WOUND DRESSING 1 EACH TP SCH ×2 (08:13→21:13)
[2023-02-20] MEDS: INSULIN GLARGINE 100 UNITS/ML, 10 ML VIAL SUBCUT SCH (08:13)
[2023-02-20] MEDS ORDERED: LIDOCAINE 2%, 20 ML MDV INJ ONE (11:30)
[2023-02-20] MEDS: MORPHINE 4 MG INJ. 4 MG/ML VIAL IVP PRN ×2 (11:40→15:07)
[2023-02-20] MEDS ORDERED: LIDOCAINE 2%, 20 ML MDV ONE (11:56)
[2023-02-20] MEDS: FLUCONAZOLE 100 mg/ NS 50 ML IV SCH (15:06)
[2023-02-20] MEDS: PROPOFOL DRIP 100 ML IV PRN (15:11)
[2023-02-21] VITALS (72 sets, daily range): BP systolic 109–129; PULSE 75–115; RESP 18–29; TEMP 97.6–98.8; O2SAT 95–100
[2023-02-21] MEDS: CLINDAMYCIN HCL 150 MG CAPSULE PO SCH ×5 (00:01→23:55)
[2023-02-21] MEDS: INSULIN LISPRO SLIDING SCALE 100 UNITS/ML, 3 ML VIAL (humaLOG) SUBCUT PRN ×3 (01:41→22:41)
[2023-02-21] MEDS: HEPARIN 25,000 UNITS in 250 ML PREMIX IV PRN ×2 (01:52→12:31)
[2023-02-21] MEDS: IPRATROPIUM/ALBUTEROL SULFATE 3 ML AMPUL.NEB (DUONEB) INH SCH ×4 (03:18→19:46)
[2023-02-21] MEDS: NAFCILLIN SODIUM 2 GM in NS 100 ML IV SCH ×6 (05:13→23:55)
[2023-02-21 05:24] LABS: BASOPHILS # (AUTO) 0.1 K/uL (0.0-0.2); BASOPHILS % (AUTO) 0.5 % (0.0-2.0); EOSINOPHILS # (AUTO) 0.6 K/uL (0.0-0.4); EOSINOPHILS % (AUTO) 3.6 % (0.0-4.0); HEMATOCRIT 28.5 % (36-48); HEMOGLOBIN 9.2 g/dL (12.0-16.0); LYMPHOCYTES # (AUTO) 2.8 K/uL (1.0-5.5); LYMPHOCYTES % (AUTO) 17.1 % (20.5-51.5); MEAN CORPUSCULAR HEMOGLOBIN 28 pg (27-31); MEAN CORPUSCULAR HGB CONC 32 % (32-36); MEAN CORPUSCULAR VOLUME 87 fL (79.0-98.0); MONOCYTES # (AUTO) 1.8 K/uL (0.0-1.0); MONOCYTES % (AUTO) 10.8 % (1.7-9.3); NEUTROPHILS # (AUTO) 11.3 K/uL (1.8-7.7); PLATELET COUNT (AUTO) 440 K/uL (130-430); RED BLOOD CELL COUNT(AUTO) 3.27 MIL/uL (4.2-6.2); WHITE BLOOD COUNT (AUTO) 16.6 K/uL (4.8-10.8)
[2023-02-21 05:51] LABS: CALCIUM 7.9 mg/dL (8.4-11.0); CREATININE 5.97 mg/dL (0.55-1.30)
[2023-02-21] MEDS: LEVOTHYROXINE SODIUM 0.05 MG TABLET NG SCH (06:36)
[2023-02-21] MEDS: LACTULOSE 20 GM/30 ML UDC PO SCH ×2 (10:01→21:02)
[2023-02-21] MEDS: HONEY WOUND DRESSING 1 EACH TP SCH ×2 (10:03→21:04)
[2023-02-21] MEDS: SILVER SULFADIAZINE 1%, 25 GM TOPICAL CREAM (SSD) TP SCH ×2 (10:03→21:03)
[2023-02-21] MEDS: INSULIN GLARGINE 100 UNITS/ML, 10 ML VIAL SUBCUT SCH (10:18)
[2023-02-21] MEDS: FLUCONAZOLE 100 mg/ NS 50 ML IV SCH (15:42)
[2023-02-21] MEDS: MORPHINE 4 MG INJ. 4 MG/ML VIAL IVP PRN (17:33)
[2023-02-21] MEDS: NS IV SCH (21:02)
[2023-02-21] MEDS: CEFTAROLINE FOSAMIL ACETATE IV SCH (21:02)
[2023-02-22] VITALS (56 sets, daily range): BP systolic 104–150; PULSE 73–96; RESP 18–23; TEMP 97.1–98.6; O2SAT 93–99
[2023-02-22] MEDS: HEPARIN 25,000 UNITS in 250 ML PREMIX IV PRN ×2 (00:07→23:23)
[2023-02-22] MEDS: IPRATROPIUM/ALBUTEROL SULFATE 3 ML AMPUL.NEB (DUONEB) INH SCH ×4 (01:05→19:34)
[2023-02-22 04:52] LABS: BASOPHILS # (AUTO) 0.1 K/uL (0.0-0.2); BASOPHILS % (AUTO) 0.4 % (0.0-2.0); EOSINOPHILS # (AUTO) 0.5 K/uL (0.0-0.4); EOSINOPHILS % (AUTO) 3.3 % (0.0-4.0); HEMATOCRIT 28.3 % (36-48); HEMOGLOBIN 9.2 g/dL (12.0-16.0); LYMPHOCYTES # (AUTO) 3.2 K/uL (1.0-5.5); LYMPHOCYTES % (AUTO) 22.4 % (20.5-51.5); MEAN CORPUSCULAR HEMOGLOBIN 28 pg (27-31); MEAN CORPUSCULAR HGB CONC 32 % (32-36); MEAN CORPUSCULAR VOLUME 88 fL (79.0-98.0); MONOCYTES # (AUTO) 1.3 K/uL (0.0-1.0); MONOCYTES % (AUTO) 9.2 % (1.7-9.3); NEUTROPHILS # (AUTO) 9.2 K/uL (1.8-7.7); NEUTROPHILS % (AUTO) 64.7 % (40.0-70.0); PLATELET COUNT (AUTO) 404 K/uL (130-430); RED BLOOD CELL COUNT(AUTO) 3.23 MIL/uL (4.2-6.2); RED CELL DISTRIBUTION WIDTH 13.8 % (9.0-15.0); WHITE BLOOD COUNT (AUTO) 14.2 K/uL (4.8-10.8)
[2023-02-22 05:05] LABS: CREATININE 4.95 mg/dL (0.55-1.30); PHOSPHORUS 6.3 mg/dL (2.7-4.5); POTASSIUM 4.4 mmol/L (3.5-5.1)
[2023-02-22] MEDS: CLINDAMYCIN HCL 150 MG CAPSULE PO SCH (05:29)
[2023-02-22] MEDS: NAFCILLIN SODIUM 2 GM in NS 100 ML IV SCH ×4 (05:30→23:21)
[2023-02-22 05:33] LABS: ERYTHROCYTE SEDIMENTATION RATE 66 MM/HR (0-20)
[2023-02-22] MEDS: INSULIN LISPRO SLIDING SCALE 100 UNITS/ML, 3 ML VIAL (humaLOG) SUBCUT PRN ×2 (05:42→22:43)
[2023-02-22] MEDS: LEVOTHYROXINE SODIUM 0.05 MG TABLET NG SCH (06:17)
[2023-02-22] MEDS: LACTULOSE 20 GM/30 ML UDC PO SCH ×2 (08:09→22:37)
[2023-02-22] MEDS: SILVER SULFADIAZINE 1%, 25 GM TOPICAL CREAM (SSD) TP SCH ×2 (08:09→22:38)
[2023-02-22] MEDS: NS IV SCH ×2 (08:10→22:37)
[2023-02-22] MEDS: CEFTAROLINE FOSAMIL ACETATE IV SCH ×2 (08:10→22:37)
[2023-02-22] MEDS: HONEY WOUND DRESSING 1 EACH TP SCH ×2 (08:11→22:39)
[2023-02-22] MEDS: INSULIN GLARGINE 100 UNITS/ML, 10 ML VIAL SUBCUT SCH (08:15)
[2023-02-22 10:56] LABS: ABG O2 SAT% ESTIMATE 95.3 % (94.0-100.0); BLOOD GAS BASE EXCESS 0.6 mmol/L (-3.0-3.0); BLOOD GAS HCO3 24.8 mmol/L (21.0-27.0); BLOOD GAS PCO2 38.6 mmHg (35.0-45.0); BLOOD GAS PH 7.426 (7.350-7.450); BLOOD GAS PO2 74.2 mmHg (75.0-100.0)
[2023-02-22 11:19] LABS: ALLEN'S TEST POSITIVE (P)
[2023-02-22] MEDS: FLUCONAZOLE 100 mg/ NS 50 ML IV SCH (13:04)
[2023-02-22] MEDS: MORPHINE 4 MG INJ. 4 MG/ML VIAL IVP PRN (13:05)
[2023-02-22] MEDS: QUEtiapine FUMARATE 25 MG TABLET PO SCH (22:38)
[2023-02-23] VITALS (28 sets, daily range): BP systolic 110–152; PULSE 73–86; RESP 12–21; TEMP 97.3–98.6; O2SAT 95–100
[2023-02-23] MEDS: IPRATROPIUM/ALBUTEROL SULFATE 3 ML AMPUL.NEB (DUONEB) INH SCH ×4 (01:08→19:11)
[2023-02-23 05:13] LABS: BASOPHILS # (AUTO) 0.1 K/uL (0.0-0.2); BASOPHILS % (AUTO) 0.5 % (0.0-2.0); EOSINOPHILS # (AUTO) 0.5 K/uL (0.0-0.4); EOSINOPHILS % (AUTO) 3.1 % (0.0-4.0); HEMATOCRIT 27.9 % (36-48); HEMOGLOBIN 8.9 g/dL (12.0-16.0); LYMPHOCYTES # (AUTO) 2.9 K/uL (1.0-5.5); LYMPHOCYTES % (AUTO) 20.1 % (20.5-51.5); MEAN CORPUSCULAR HEMOGLOBIN 28 pg (27-31); MEAN CORPUSCULAR HGB CONC 32 % (32-36); MEAN CORPUSCULAR VOLUME 88 fL (79.0-98.0); MONOCYTES # (AUTO) 1.3 K/uL (0.0-1.0); NEUTROPHILS # (AUTO) 9.8 K/uL (1.8-7.7); NEUTROPHILS % (AUTO) 67.3 % (40.0-70.0); PLATELET COUNT (AUTO) 389 K/uL (130-430); RED BLOOD CELL COUNT(AUTO) 3.17 MIL/uL (4.2-6.2); WHITE BLOOD COUNT (AUTO) 14.6 K/uL (4.8-10.8)
[2023-02-23] MEDS: NAFCILLIN SODIUM 2 GM in NS 100 ML IV SCH ×3 (05:56→18:12)
[2023-02-23] MEDS: LEVOTHYROXINE SODIUM 0.05 MG TABLET NG SCH (05:58)
[2023-02-23] MEDS: INSULIN LISPRO SLIDING SCALE 100 UNITS/ML, 3 ML VIAL (humaLOG) SUBCUT PRN (06:00)
[2023-02-23 06:16] LABS: ALBUMIN 1.4 g/dL (3.4-4.8); CALCIUM 8.7 mg/dL (8.4-11.0); CREATININE 6.35 mg/dL (0.55-1.30); PHOSPHORUS 9.5 mg/dL (2.7-4.5); POTASSIUM 4.6 mmol/L (3.5-5.1); TOTAL BILIRUBIN 0.8 mg/dL (0.0-1.0); TOTAL PROTEIN, SERUM 6.4 g/dL (6.4-8.3)
[2023-02-23] MEDS: QUEtiapine FUMARATE 25 MG TABLET PO SCH ×2 (08:22→21:16)
[2023-02-23] MEDS: LACTULOSE 20 GM/30 ML UDC PO SCH ×2 (08:22→21:16)
[2023-02-23] MEDS: INSULIN GLARGINE 100 UNITS/ML, 10 ML VIAL SUBCUT SCH (08:22)
[2023-02-23] MEDS: SILVER SULFADIAZINE 1%, 25 GM TOPICAL CREAM (SSD) TP SCH ×2 (08:23→21:17)
[2023-02-23] MEDS: HONEY WOUND DRESSING 1 EACH TP SCH ×2 (08:23→21:18)
[2023-02-23] MEDS: NS IV SCH ×2 (08:25→22:51)
[2023-02-23] MEDS: CEFTAROLINE FOSAMIL ACETATE IV SCH ×2 (08:25→22:51)
[2023-02-23 08:34] LABS: ERYTHROCYTE SEDIMENTATION RATE 54 MM/HR (0-20)
[2023-02-23] MEDS: HEPARIN 25,000 UNITS in 250 ML PREMIX IV PRN ×2 (08:35→22:09)
[2023-02-23 12:28] LABS: ABG O2 SAT% ESTIMATE 97.9 % (94.0-100.0); BLOOD GAS HCO3 25.2 mmol/L (21.0-27.0); BLOOD GAS PCO2 35.3 mmHg (35.0-45.0); BLOOD GAS PH 7.472 (7.350-7.450); BLOOD GAS PO2 98.7 mmHg (75.0-100.0)
[2023-02-23 12:31] LABS: ALLEN'S TEST POSITIVE (P)
[2023-02-23] MEDS ORDERED: SER25 PO (13:47)
[2023-02-23] MEDS ORDERED: INSU100V9 SUBCUT (13:47)
[2023-02-23] MEDS ORDERED: ZOLP5TAB2 PO (13:47)
[2023-02-23] MEDS ORDERED: FLUC100P4 IV (13:47)
[2023-02-23] MEDS ORDERED: SYN50 NG (13:47)
[2023-02-23] MEDS ORDERED: [UNRECOGNIZED DRUG - CODE] IJ (13:47)
[2023-02-23] MEDS ORDERED: CEFT400V IV (13:47)
[2023-02-23] MEDS ORDERED: DOCU-144 PO (13:47)
[2023-02-23] MEDS ORDERED: Lactulose PO (13:47)
[2023-02-23] MEDS: FLUCONAZOLE 100 mg/ NS 50 ML IV SCH (14:28)
[2023-02-23] MEDS: MORPHINE 4 MG INJ. 4 MG/ML VIAL IVP PRN ×2 (14:29→23:53)
[2023-02-23] MEDS ORDERED: CEFTAROLINE FOSAMIL ACETATE 400 MG VIAL IV ONE (22:25)
[2023-02-24] VITALS (29 sets, daily range): BP systolic 121–168; PULSE 80–108; RESP 12–28; TEMP 96.9–98.4; O2SAT 90–100
[2023-02-24] MEDS: NAFCILLIN SODIUM 2 GM in NS 100 ML IV SCH ×5 (00:58→23:40)
[2023-02-24] MEDS: IPRATROPIUM/ALBUTEROL SULFATE 3 ML AMPUL.NEB (DUONEB) INH SCH ×5 (01:04→23:50)
[2023-02-24 05:53] LABS: BASOPHILS # (AUTO) 0.1 K/uL (0.0-0.2); BASOPHILS % (AUTO) 0.4 % (0.0-2.0); EOSINOPHILS # (AUTO) 0.3 K/uL (0.0-0.4); EOSINOPHILS % (AUTO) 2.3 % (0.0-4.0); HEMATOCRIT 27.5 % (36-48); HEMOGLOBIN 8.8 g/dL (12.0-16.0); LYMPHOCYTES # (AUTO) 2.8 K/uL (1.0-5.5); LYMPHOCYTES % (AUTO) 19.5 % (20.5-51.5); MEAN CORPUSCULAR HEMOGLOBIN 29 pg (27-31); MEAN CORPUSCULAR HGB CONC 32 % (32-36); MEAN CORPUSCULAR VOLUME 89 fL (79.0-98.0); MONOCYTES # (AUTO) 1.1 K/uL (0.0-1.0); MONOCYTES % (AUTO) 7.9 % (1.7-9.3); NEUTROPHILS # (AUTO) 9.8 K/uL (1.8-7.7); NEUTROPHILS % (AUTO) 69.9 % (40.0-70.0); PLATELET COUNT (AUTO) 374 K/uL (130-430); RED BLOOD CELL COUNT(AUTO) 3.09 MIL/uL (4.2-6.2); RED CELL DISTRIBUTION WIDTH 14.2 % (9.0-15.0); WHITE BLOOD COUNT (AUTO) 14.1 K/uL (4.8-10.8)
[2023-02-24 05:55] LABS: ERYTHROCYTE SEDIMENTATION RATE 60 MM/HR (0-20)
[2023-02-24 05:59] LABS: CALCIUM 8.3 mg/dL (8.4-11.0); CREATININE 5.06 mg/dL (0.55-1.30); PHOSPHORUS 7.1 mg/dL (2.7-4.5); POTASSIUM 4.3 mmol/L (3.5-5.1)
[2023-02-24] MEDS: LEVOTHYROXINE SODIUM 0.05 MG TABLET NG SCH (06:55)
[2023-02-24] MEDS: HEPARIN 25,000 UNITS in 250 ML PREMIX IV PRN ×3 (07:02→21:51)
[2023-02-24] MEDS: HONEY WOUND DRESSING 1 EACH TP SCH ×2 (09:00→21:00)
[2023-02-24] MEDS: NS IV SCH ×2 (10:42→21:38)
[2023-02-24] MEDS: CEFTAROLINE FOSAMIL ACETATE IV SCH ×2 (10:42→21:38)
[2023-02-24] MEDS: INSULIN GLARGINE 100 UNITS/ML, 10 ML VIAL SUBCUT SCH (10:48)
[2023-02-24] MEDS: QUEtiapine FUMARATE 25 MG TABLET PO SCH ×2 (14:14→21:06)
[2023-02-24] MEDS: LACTULOSE 20 GM/30 ML UDC PO SCH ×2 (14:14→21:06)
[2023-02-24] MEDS: FLUCONAZOLE 100 mg/ NS 50 ML IV SCH (14:15)
[2023-02-24] MEDS: CALCIUM ACETATE 667 MG CAP PO SCH (18:32)
[2023-02-24] MEDS: SILVER SULFADIAZINE 1%, 25 GM TOPICAL CREAM (SSD) TP SCH ×2 (18:33→21:12)
[2023-02-24] MEDS: MORPHINE 4 MG INJ. 4 MG/ML VIAL IVP PRN ×2 (19:00→21:13)
[2023-02-25] VITALS (15 sets, daily range): BP systolic 121–158; PULSE 87–96; RESP 12–18; TEMP 96.9–98.4; O2SAT 9–98
[2023-02-25 06:17] LABS: CALCIUM 8.5 mg/dL (8.4-11.0); CREATININE 4.68 mg/dL (0.55-1.30); POTASSIUM 3.9 mmol/L (3.5-5.1)
[2023-02-25] MEDS: IPRATROPIUM/ALBUTEROL SULFATE 3 ML AMPUL.NEB (DUONEB) INH SCH ×3 (07:16→19:40)
[2023-02-25] MEDS: NAFCILLIN SODIUM 2 GM in NS 100 ML IV SCH ×4 (08:33→23:48)
[2023-02-25] MEDS: QUEtiapine FUMARATE 25 MG TABLET PO SCH ×2 (08:49→20:26)
[2023-02-25] MEDS: LACTULOSE 20 GM/30 ML UDC PO SCH ×2 (08:49→20:26)
[2023-02-25] MEDS: CALCIUM ACETATE 667 MG CAP PO SCH ×3 (08:49→18:07)
[2023-02-25] MEDS: LEVOTHYROXINE SODIUM 0.05 MG TABLET NG SCH (08:49)
[2023-02-25] MEDS: CEFTAROLINE FOSAMIL ACETATE IV SCH ×2 (08:50→20:35)
[2023-02-25] MEDS: NS IV SCH ×2 (08:50→20:35)
[2023-02-25] MEDS: SILVER SULFADIAZINE 1%, 25 GM TOPICAL CREAM (SSD) TP SCH ×2 (08:59→20:27)
[2023-02-25] MEDS: HONEY WOUND DRESSING 1 EACH TP SCH (09:00)
[2023-02-25] MEDS: INSULIN GLARGINE 100 UNITS/ML, 10 ML VIAL SUBCUT SCH (09:01)
[2023-02-25] MEDS: HEPARIN 25,000 UNITS in 250 ML PREMIX IV PRN (09:56)
[2023-02-25] MEDS: MORPHINE 4 MG INJ. 4 MG/ML VIAL IVP PRN (14:34)
[2023-02-25] MEDS: FLUCONAZOLE 100 mg/ NS 50 ML IV SCH (14:35)
[2023-02-26] VITALS (11 sets, daily range): BP systolic 108–145; PULSE 76–94; RESP 17–20; TEMP 97.2–98.6; O2SAT 92–98
[2023-02-26] MEDS: HONEY WOUND DRESSING 1 EACH TP SCH ×3 (00:05→21:00)
[2023-02-26] MEDS: IPRATROPIUM/ALBUTEROL SULFATE 3 ML AMPUL.NEB (DUONEB) INH SCH ×4 (01:00→20:19)
[2023-02-26 05:09] LABS: BASOPHILS # (AUTO) 0.1 K/uL (0.0-0.2); BASOPHILS % (AUTO) 1.1 % (0.0-2.0); EOSINOPHILS # (AUTO) 0.3 K/uL (0.0-0.4); EOSINOPHILS % (AUTO) 3.4 % (0.0-4.0); HEMATOCRIT 27.4 % (36-48); HEMOGLOBIN 8.9 g/dL (12.0-16.0); LYMPHOCYTES # (AUTO) 2.1 K/uL (1.0-5.5); LYMPHOCYTES % (AUTO) 24.2 % (20.5-51.5); MEAN CORPUSCULAR HEMOGLOBIN 29 pg (27-31); MEAN CORPUSCULAR HGB CONC 32 % (32-36); MEAN CORPUSCULAR VOLUME 89 fL (79.0-98.0); MONOCYTES # (AUTO) 0.8 K/uL (0.0-1.0); MONOCYTES % (AUTO) 9.8 % (1.7-9.3); NEUTROPHILS # (AUTO) 5.3 K/uL (1.8-7.7); NEUTROPHILS % (AUTO) 61.5 % (40.0-70.0); PLATELET COUNT (AUTO) 378 K/uL (130-430); RED BLOOD CELL COUNT(AUTO) 3.08 MIL/uL (4.2-6.2); RED CELL DISTRIBUTION WIDTH 14.2 % (9.0-15.0); WHITE BLOOD COUNT (AUTO) 8.7 K/uL (4.8-10.8)
[2023-02-26 05:45] LABS: ALBUMIN 1.5 g/dL (3.4-4.8); CREATININE 5.78 mg/dL (0.55-1.30); POTASSIUM 3.7 mmol/L (3.5-5.1); TOTAL BILIRUBIN 0.7 mg/dL (0.0-1.0); TOTAL PROTEIN, SERUM 6.4 g/dL (6.4-8.3)
[2023-02-26] MEDS: NAFCILLIN SODIUM 2 GM in NS 100 ML IV SCH ×3 (05:47→17:36)
[2023-02-26] MEDS: HEPARIN 25,000 UNITS in 250 ML PREMIX IV PRN ×4 (06:06→18:30)
[2023-02-26] MEDS: LEVOTHYROXINE SODIUM 0.05 MG TABLET NG SCH (06:11)
[2023-02-26] MEDS: CALCIUM ACETATE 667 MG CAP PO SCH ×3 (08:00→17:36)
[2023-02-26] MEDS: LACTULOSE 20 GM/30 ML UDC PO SCH ×3 (08:22→22:41)
[2023-02-26] MEDS: QUEtiapine FUMARATE 25 MG TABLET PO SCH ×2 (08:23→22:41)
[2023-02-26] MEDS: INSULIN GLARGINE 100 UNITS/ML, 10 ML VIAL SUBCUT SCH (08:24)
[2023-02-26] MEDS: SILVER SULFADIAZINE 1%, 25 GM TOPICAL CREAM (SSD) TP SCH ×2 (08:50→21:00)
[2023-02-26] MEDS: NS IV SCH (08:53)
[2023-02-26] MEDS: CEFTAROLINE FOSAMIL ACETATE IV SCH (08:53)
[2023-02-26] MEDS ORDERED: TRANEXAMIC ACID 1,000 MG/10 ML VIAL ONE (09:37)
[2023-02-26] MEDS ORDERED: DEXAMETHASONE SOD PHOSPHATE 4 MG/ML VIAL ONE (09:37)
[2023-02-26] MEDS ORDERED: ePHEDrine sulfate 50 MG/ML VIAL ONE (09:37)
[2023-02-26] MEDS ORDERED: NS 1000 ML IV.SOLN IV ONE ×2 (09:37→11:50)
[2023-02-26] MEDS ORDERED: SEVOFLURANE 15 MIN GAS INH ONE ×2 (09:37→11:50)
[2023-02-26] MEDS ORDERED: BUPIVACAINE /PF 0.25% 30 ML VIAL INJ ONE (09:37)
[2023-02-26] MEDS ORDERED: LR 1,000 ML IV.SOLN IV ONE (09:37)
[2023-02-26] MEDS ORDERED: PROPOFOL 200MG/ 20ML VIAL (DIPRIVAN) IV ONE ×2 (09:37→11:50)
[2023-02-26] MEDS ORDERED: NS IRRIG SOLN 1000 ML IR ONE ×2 (09:37→11:50)
[2023-02-26] MEDS ORDERED: MIDAZOLAM HCL/PF 2 MG/2 ML SYRINGE ONE (11:50)
[2023-02-26] MEDS ORDERED: BUPIVACAINE /PF 0.5% 30 ML VIAL ONE (11:50)
[2023-02-26] MEDS ORDERED: fentaNYL CITRATE/PF 100 MCG/2 ML AMP ONE (11:50)
[2023-02-26] MEDS ORDERED: LR 1,000 ML IV SCH (12:30)
[2023-02-26] MEDS ORDERED: ONDANSETRON HCL 4 MG/2 ML VIAL IVP PRN (12:30)
[2023-02-26] MEDS ORDERED: HYDROmorphone 1 MG/ML INJ. CARTRIDGE IVP PRN ×2 (12:30)
[2023-02-26] MEDS ORDERED: NALOXONE HCL 0.4 MG/ML AMP (NARCAN) IVP PRN ×2 (12:30)
[2023-02-26] MEDS ORDERED: HYDROmorphone 2 MG/ML VIAL ONE (13:36)
[2023-02-26] MEDS: FLUCONAZOLE 100 mg/ NS 50 ML IV SCH (14:52)
[2023-02-27] VITALS (11 sets, daily range): BP systolic 110–147; PULSE 80–86; RESP 15–20; TEMP 96.2–97.9; O2SAT 92–99
[2023-02-27] MEDS: NAFCILLIN SODIUM 2 GM in NS 100 ML IV SCH ×5 (00:27→22:57)
[2023-02-27] MEDS: IPRATROPIUM/ALBUTEROL SULFATE 3 ML AMPUL.NEB (DUONEB) INH SCH ×4 (00:51→19:52)
[2023-02-27] MEDS: HEPARIN 25,000 UNITS in 250 ML PREMIX IV PRN ×2 (01:20→07:42)
[2023-02-27] MEDS: LEVOTHYROXINE SODIUM 0.05 MG TABLET NG SCH (06:27)
[2023-02-27 06:35] LABS: BASOPHILS # (AUTO) 0.1 K/uL (0.0-0.2); BASOPHILS % (AUTO) 1.4 % (0.0-2.0); EOSINOPHILS # (AUTO) 0.3 K/uL (0.0-0.4); EOSINOPHILS % (AUTO) 3.3 % (0.0-4.0); HEMATOCRIT 26.1 % (36-48); HEMOGLOBIN 8.4 g/dL (12.0-16.0); LYMPHOCYTES # (AUTO) 1.7 K/uL (1.0-5.5); MEAN CORPUSCULAR HEMOGLOBIN 29 pg (27-31); MEAN CORPUSCULAR HGB CONC 32 % (32-36); MEAN CORPUSCULAR VOLUME 89 fL (79.0-98.0); MONOCYTES # (AUTO) 0.7 K/uL (0.0-1.0); MONOCYTES % (AUTO) 9.4 % (1.7-9.3); NEUTROPHILS # (AUTO) 4.8 K/uL (1.8-7.7); NEUTROPHILS % (AUTO) 63.9 % (40.0-70.0); PLATELET COUNT (AUTO) 387 K/uL (130-430); RED BLOOD CELL COUNT(AUTO) 2.93 MIL/uL (4.2-6.2); RED CELL DISTRIBUTION WIDTH 14.3 % (9.0-15.0); WHITE BLOOD COUNT (AUTO) 7.6 K/uL (4.8-10.8)
[2023-02-27 06:44] LABS: CALCIUM 8.4 mg/dL (8.4-11.0); CREATININE 6.74 mg/dL (0.55-1.30); POTASSIUM 4.2 mmol/L (3.5-5.1)
[2023-02-27] MEDS: CALCIUM ACETATE 667 MG CAP PO SCH ×3 (08:00→18:02)
[2023-02-27] MEDS: INSULIN GLARGINE 100 UNITS/ML, 10 ML VIAL SUBCUT SCH (08:52)
[2023-02-27] MEDS: LACTULOSE 20 GM/30 ML UDC PO SCH ×2 (08:52→21:00)
[2023-02-27] MEDS: SILVER SULFADIAZINE 1%, 25 GM TOPICAL CREAM (SSD) TP SCH ×2 (08:53→21:00)
[2023-02-27] MEDS: QUEtiapine FUMARATE 25 MG TABLET PO SCH ×2 (08:53→21:56)
[2023-02-27] MEDS: HONEY WOUND DRESSING 1 EACH TP SCH ×2 (08:53→21:00)
[2023-02-27] MEDS ORDERED: fentaNYL CITRATE/PF 100 MCG/2 ML AMP IVP ONE (09:00)
[2023-02-27] MEDS ORDERED: MIDAZOLAM HCL 5 MG/5 ML VIAL IVP ONE (09:00)
[2023-02-27] MEDS ORDERED: LIDOCAINE VISCOUS 2%, 15 ML UDC MM PRN (09:00)
[2023-02-27] MEDS ORDERED: fentaNYL CITRATE/PF 100 MCG/2 ML AMP ONE (09:42)
[2023-02-27] MEDS ORDERED: MIDAZOLAM HCL 5 MG/5 ML VIAL ONE (09:43)
[2023-02-27] MEDS ORDERED: HEPARIN SODIUM,PORCINE 5,000 UNITS/ML VIAL MC ONE (11:45)
[2023-02-27] MEDS: FLUCONAZOLE 100 mg/ NS 50 ML IV SCH (15:34)
[2023-02-27] MEDS: INSULIN LISPRO SLIDING SCALE 100 UNITS/ML, 3 ML VIAL (humaLOG) SUBCUT PRN (23:13)
[2023-02-28 00:39] VITALS: BP_SYST 141; PULSE 96; RESP 18; TEMP 97.1; O2SAT 97
[2023-02-28] MEDS: IPRATROPIUM/ALBUTEROL SULFATE 3 ML AMPUL.NEB (DUONEB) INH SCH ×4 (01:00→19:00)
[2023-02-28 05:24] LABS: BASOPHILS # (AUTO) 0.1 K/uL (0.0-0.2); BASOPHILS % (AUTO) 1.8 % (0.0-2.0); EOSINOPHILS # (AUTO) 0.3 K/uL (0.0-0.4); HEMATOCRIT 26.2 % (36-48); HEMOGLOBIN 8.4 g/dL (12.0-16.0); LYMPHOCYTES # (AUTO) 1.4 K/uL (1.0-5.5); LYMPHOCYTES % (AUTO) 25.1 % (20.5-51.5); MEAN CORPUSCULAR HEMOGLOBIN 28 pg (27-31); MEAN CORPUSCULAR HGB CONC 32 % (32-36); MEAN CORPUSCULAR VOLUME 88 fL (79.0-98.0); MONOCYTES # (AUTO) 0.7 K/uL (0.0-1.0); NEUTROPHILS % (AUTO) 55.1 % (40.0-70.0); PLATELET COUNT (AUTO) 381 K/uL (130-430); RED BLOOD CELL COUNT(AUTO) 2.97 MIL/uL (4.2-6.2); RED CELL DISTRIBUTION WIDTH 14.4 % (9.0-15.0); WHITE BLOOD COUNT (AUTO) 5.4 K/uL (4.8-10.8)
[2023-02-28 05:44] LABS: CALCIUM 8.8 mg/dL (8.4-11.0); CREATININE 4.71 mg/dL (0.55-1.30); POTASSIUM 3.8 mmol/L (3.5-5.1)
[2023-02-28] MEDS: LEVOTHYROXINE SODIUM 0.075 MG TABLET PO SCH (06:44)
[2023-02-28] MEDS: NAFCILLIN SODIUM 2 GM in NS 100 ML IV SCH ×4 (06:45→23:24)
[2023-02-28 07:13] VITALS: O2SAT 100
[2023-02-28 08:00] VITALS: BP_SYST 117; PULSE 107; RESP 19; TEMP 98; O2SAT 98
[2023-02-28] MEDS ORDERED: APIXABAN 2.5 MG TABLET PO ONE (09:15)
[2023-02-28] MEDS ORDERED: *HEPARIN PER PHARMACY XX ONE (09:30)
[2023-02-28] MEDS: CALCIUM ACETATE 667 MG CAP PO SCH ×3 (09:49→18:00)
[2023-02-28] MEDS: LACTULOSE 20 GM/30 ML UDC PO SCH ×2 (09:49→20:44)
[2023-02-28] MEDS: CHOLECALCIFEROL (VITAMIN D3) 5,000 UNIT TABLET PO SCH (09:50)
[2023-02-28] MEDS: SILVER SULFADIAZINE 1%, 25 GM TOPICAL CREAM (SSD) TP SCH ×2 (09:52→20:44)
[2023-02-28] MEDS: HONEY WOUND DRESSING 1 EACH TP SCH ×2 (10:02→20:45)
[2023-02-28] MEDS ORDERED: HEPARIN SODIUM,PORCINE 2000 UNITS/0.4 ML BOLUS IVP PRN (11:00)
[2023-02-28] MEDS ORDERED: HEPARIN SODIUM,PORCINE 3000 UNITS/0.6 ML BOLUS IVP PRN (11:00)
[2023-02-28 11:21] VITALS: BP_SYST 138; PULSE 94; RESP 18; TEMP 97.1; O2SAT 98
[2023-02-28] MEDS: HEPARIN 25,000 UNITS in 250 ML PREMIX IV PRN (11:44)
[2023-02-28] MEDS: INSULIN LISPRO SLIDING SCALE 100 UNITS/ML, 3 ML VIAL (humaLOG) SUBCUT PRN (12:10)
[2023-02-28 16:00] VITALS: BP_SYST 141; PULSE 96; RESP 20; TEMP 97.1; O2SAT 95
[2023-02-28 20:00] VITALS: BP_SYST 119; PULSE 91; RESP 18; TEMP 98; O2SAT 99
[2023-02-28] MEDS: MORPHINE 4 MG INJ. 4 MG/ML VIAL IVP PRN (20:44)
[2023-02-28] MEDS: QUEtiapine FUMARATE 25 MG TABLET PO SCH (20:44)
[2023-02-28] MEDS ORDERED: APIXABAN 2.5 MG TABLET PO SCH (21:00)
[2023-03-01] VITALS (9 sets, daily range): BP systolic 114–136; PULSE 64–97; RESP 16–20; TEMP 97.5–98.7; O2SAT 95–98
[2023-03-01] MEDS: IPRATROPIUM/ALBUTEROL SULFATE 3 ML AMPUL.NEB (DUONEB) INH SCH ×4 (01:00→19:00)
[2023-03-01] MEDS: HEPARIN 25,000 UNITS in 250 ML PREMIX IV PRN ×2 (01:49→14:53)
[2023-03-01 05:16] LABS: BASOPHILS # (AUTO) 0.1 K/uL (0.0-0.2); BASOPHILS % (AUTO) 1.2 % (0.0-2.0); EOSINOPHILS # (AUTO) 0.3 K/uL (0.0-0.4); EOSINOPHILS % (AUTO) 4.8 % (0.0-4.0); HEMATOCRIT 25.1 % (36-48); HEMOGLOBIN 7.9 g/dL (12.0-16.0); LYMPHOCYTES # (AUTO) 2.3 K/uL (1.0-5.5); LYMPHOCYTES % (AUTO) 38.4 % (20.5-51.5); MEAN CORPUSCULAR HEMOGLOBIN 28 pg (27-31); MEAN CORPUSCULAR HGB CONC 31 % (32-36); MEAN CORPUSCULAR VOLUME 89 fL (79.0-98.0); MONOCYTES # (AUTO) 0.8 K/uL (0.0-1.0); MONOCYTES % (AUTO) 12.9 % (1.7-9.3); NEUTROPHILS # (AUTO) 2.6 K/uL (1.8-7.7); NEUTROPHILS % (AUTO) 42.7 % (40.0-70.0); PLATELET COUNT (AUTO) 400 K/uL (130-430); RED BLOOD CELL COUNT(AUTO) 2.82 MIL/uL (4.2-6.2); RED CELL DISTRIBUTION WIDTH 13.9 % (9.0-15.0); WHITE BLOOD COUNT (AUTO) 6.1 K/uL (4.8-10.8)
[2023-03-01 05:35] LABS: CALCIUM 8.9 mg/dL (8.4-11.0); CREATININE 5.38 mg/dL (0.55-1.30); POTASSIUM 3.7 mmol/L (3.5-5.1)
[2023-03-01 05:43] LABS: TOTAL IRON BIND. CAPACITY 90 ug/dL (250-450)
[2023-03-01] MEDS: LEVOTHYROXINE SODIUM 0.075 MG TABLET PO SCH (06:11)
[2023-03-01] MEDS: NAFCILLIN SODIUM 2 GM in NS 100 ML IV SCH ×4 (06:11→23:28)
[2023-03-01] MEDS: CHOLECALCIFEROL (VITAMIN D3) 5,000 UNIT TABLET PO SCH (08:19)
[2023-03-01] MEDS: CALCIUM ACETATE 667 MG CAP PO SCH ×3 (08:19→18:05)
[2023-03-01] MEDS: LACTULOSE 20 GM/30 ML UDC PO SCH ×3 (08:24→21:00)
[2023-03-01] MEDS: SILVER SULFADIAZINE 1%, 25 GM TOPICAL CREAM (SSD) TP SCH ×2 (08:29→21:00)
[2023-03-01] MEDS: HONEY WOUND DRESSING 1 EACH TP SCH ×2 (08:30→21:00)
[2023-03-01] MEDS ORDERED: QUEtiapine FUMARATE 25 MG TABLET PO SCH (09:15)
[2023-03-01] MEDS ORDERED: QUEtiapine FUMARATE 25 MG TABLET PO ONE (10:30)
[2023-03-01 12:07] LABS: HEPATITIS A AB, IgM Negative (Negative); HEPATITIS B CORE AB, IgM Negative (Negative); HEPATITIS B SURFACE AG Negative (Negative)
[2023-03-01] MEDS: ARIPiprazole 5 MG TAB PO SCH ×2 (20:59→21:00)
[2023-03-02] VITALS (11 sets, daily range): BP systolic 110–197; PULSE 81–86; RESP 16–18; TEMP 97.2–98.9; O2SAT 95–100
[2023-03-02] MEDS: IPRATROPIUM/ALBUTEROL SULFATE 3 ML AMPUL.NEB (DUONEB) INH SCH ×5 (01:00→19:00)
[2023-03-02 03:07] LABS: HEPATITIS C VIRUS AB Non Reactive (Non Reactive)
[2023-03-02] MEDS: NACL 0.9% 1,000 ML IV SCH ×2 (04:05→18:05)
[2023-03-02 04:07] LABS: QUANTIFERON TB GOLD Negative (Negative)
[2023-03-02 04:50] LABS: CALCIUM 8.9 mg/dL (8.4-11.0); CREATININE 3.99 mg/dL (0.55-1.30); POTASSIUM 3.8 mmol/L (3.5-5.1)
[2023-03-02 04:53] LABS: BASOPHILS # (AUTO) 0.1 K/uL (0.0-0.2); BASOPHILS % (AUTO) 2.2 % (0.0-2.0); EOSINOPHILS # (AUTO) 0.3 K/uL (0.0-0.4); EOSINOPHILS % (AUTO) 4.5 % (0.0-4.0); HEMOGLOBIN 8.2 g/dL (12.0-16.0); LYMPHOCYTES % (AUTO) 34.9 % (20.5-51.5); MEAN CORPUSCULAR HEMOGLOBIN 29 pg (27-31); MEAN CORPUSCULAR HGB CONC 33 % (32-36); MEAN CORPUSCULAR VOLUME 89 fL (79.0-98.0); MONOCYTES # (AUTO) 0.6 K/uL (0.0-1.0); MONOCYTES % (AUTO) 10.8 % (1.7-9.3); NEUTROPHILS # (AUTO) 2.7 K/uL (1.8-7.7); NEUTROPHILS % (AUTO) 47.6 % (40.0-70.0); PLATELET COUNT (AUTO) 403 K/uL (130-430); RED BLOOD CELL COUNT(AUTO) 2.82 MIL/uL (4.2-6.2); RED CELL DISTRIBUTION WIDTH 13.8 % (9.0-15.0); WHITE BLOOD COUNT (AUTO) 5.6 K/uL (4.8-10.8)
[2023-03-02] MEDS: NAFCILLIN SODIUM 2 GM in NS 100 ML IV SCH ×4 (05:15→23:53)
[2023-03-02] MEDS: ONDANSETRON HCL 4 MG/2 ML VIAL IVP PRN (05:21)
[2023-03-02] MEDS: LEVOTHYROXINE SODIUM 0.075 MG TABLET PO SCH (06:22)
[2023-03-02] MEDS: CALCIUM ACETATE 667 MG CAP PO SCH ×3 (08:00→18:00)
[2023-03-02 08:06] LABS: FOLATE (FOLIC ACID) 4.5 ng/mL (>3.0)
[2023-03-02] MEDS ORDERED: LORazepam 1 MG TABLET PO ONE (08:30)
[2023-03-02] MEDS ORDERED: LORazepam 2 MG/ML VIAL IVP PRN (08:45)
[2023-03-02] MEDS: CHOLECALCIFEROL (VITAMIN D3) 5,000 UNIT TABLET PO SCH (08:58)
[2023-03-02] MEDS: LACTULOSE 20 GM/30 ML UDC PO SCH ×2 (08:58→20:45)
[2023-03-02] MEDS: ARIPiprazole 5 MG TAB PO SCH ×2 (08:58→20:45)
[2023-03-02] MEDS: HONEY WOUND DRESSING 1 EACH TP SCH ×2 (09:00→21:00)
[2023-03-02] MEDS: SILVER SULFADIAZINE 1%, 25 GM TOPICAL CREAM (SSD) TP SCH ×2 (09:00→21:00)
[2023-03-02 09:11] LABS: BARBITURATE, URINE NEGATIVE (NEG <=200); BENZODIAZEPINE, URINE POSITIVE (NEG <=150); CANNABINOID, URINE NEGATIVE (NEG <=50); COCAINE, URINE NEGATIVE (NEG <=150); METHAMPHETAMINES SCREEN,URINE NEGATIVE (NEG <=500); OPIATE, URINE POSITIVE (NEG <=100); PHENCYCLIDINE SCREEN,URINE NEGATIVE (NEG <=25); UR TRICYCLIC ANTIDEPRESSANTS NEGATIVE (NEG <=300); URINE AMPHETAMINE NEGATIVE (NEG <=500); URINE METHADONE NEGATIVE (NEG <=200); URINE OXYCODONE SCREEN NEGATIVE (NEG <=100); URINE PROPOXYPHENE SCREEN NEGATIVE (NEG <=300)
[2023-03-02] MEDS ORDERED: ONDANSETRON HCL 4 MG/2 ML VIAL ONE (14:36)
[2023-03-02] MEDS ORDERED: WATER FOR IRRIGATION,STERILE 1,000 ML IRRIG.SOLN IR ONE (14:36)
[2023-03-02] MEDS ORDERED: HEPARIN SODIUM,PORCINE 10,000 UNIT/ML VIAL ONE (14:36)
[2023-03-02] MEDS ORDERED: LIDOCAINE 1% 10 MG/ML, 20 ML MDV ONE (14:36)
[2023-03-02] MEDS ORDERED: METOCLOPRAMIDE HCL 10 MG/2 ML VIAL ONE (14:36)
[2023-03-02] MEDS ORDERED: PROPOFOL 200MG/ 20ML VIAL (DIPRIVAN) IV ONE (14:36)
[2023-03-02] MEDS ORDERED: NS 1000 ML IV.SOLN IV ONE (14:36)
[2023-03-02] MEDS ORDERED: KETOROLAC TROMETHAMINE 30 MG VIAL IVP PRN (15:30)
[2023-03-02] MEDS ORDERED: ONDANSETRON HCL 4 MG/2 ML VIAL IVP PRN (15:30)
[2023-03-02] MEDS ORDERED: 0.45% NACL 1,000 ML IV SCH (15:30)
[2023-03-02] MEDS ORDERED: LORazepam 2 MG/ML VIAL ONE (15:51)
[2023-03-02] MEDS ORDERED: LABETALOL HCL 20 MG/4 ML CARTRIDGE IVP ONE (17:00)
[2023-03-02] MEDS ORDERED: LABETALOL 100 MG/ 20ML VIAL IVP ONE (17:15)
[2023-03-02] MEDS: HEPARIN 25,000 UNITS in 250 ML PREMIX IV PRN (23:56)
[2023-03-03] VITALS (10 sets, daily range): BP systolic 132–154; PULSE 81–90; RESP 15–20; TEMP 97.9–99.1; O2SAT 96–100
[2023-03-03] MEDS: IPRATROPIUM/ALBUTEROL SULFATE 3 ML AMPUL.NEB (DUONEB) INH SCH ×4 (01:00→19:00)
[2023-03-03 05:11] LABS: BASOPHILS # (AUTO) 0.1 K/uL (0.0-0.2); BASOPHILS % (AUTO) 2.3 % (0.0-2.0); EOSINOPHILS # (AUTO) 0.2 K/uL (0.0-0.4); HEMOGLOBIN 8.7 g/dL (12.0-16.0); LYMPHOCYTES # (AUTO) 1.4 K/uL (1.0-5.5); LYMPHOCYTES % (AUTO) 26.1 % (20.5-51.5); MEAN CORPUSCULAR HEMOGLOBIN 30 pg (27-31); MEAN CORPUSCULAR HGB CONC 33 % (32-36); MEAN CORPUSCULAR VOLUME 89 fL (79.0-98.0); MONOCYTES # (AUTO) 0.6 K/uL (0.0-1.0); MONOCYTES % (AUTO) 10.4 % (1.7-9.3); NEUTROPHILS # (AUTO) 3.2 K/uL (1.8-7.7); NEUTROPHILS % (AUTO) 57.2 % (40.0-70.0); PLATELET COUNT (AUTO) 415 K/uL (130-430); RED BLOOD CELL COUNT(AUTO) 2.92 MIL/uL (4.2-6.2); WHITE BLOOD COUNT (AUTO) 5.5 K/uL (4.8-10.8)
[2023-03-03] MEDS: NAFCILLIN SODIUM 2 GM in NS 100 ML IV SCH ×3 (05:31→17:13)
[2023-03-03 05:35] LABS: CALCIUM 8.8 mg/dL (8.4-11.0); CREATININE 3.92 mg/dL (0.55-1.30); POTASSIUM 3.7 mmol/L (3.5-5.1)
[2023-03-03] MEDS: LEVOTHYROXINE SODIUM 0.075 MG TABLET PO SCH ×2 (06:26→06:58)
[2023-03-03] MEDS: INSULIN LISPRO SLIDING SCALE 100 UNITS/ML, 3 ML VIAL (humaLOG) SUBCUT PRN (07:05)
[2023-03-03] MEDS: CALCIUM ACETATE 667 MG CAP PO SCH ×3 (08:06→17:24)
[2023-03-03] MEDS: LACTULOSE 20 GM/30 ML UDC PO SCH ×2 (08:07→20:56)
[2023-03-03] MEDS: CHOLECALCIFEROL (VITAMIN D3) 5,000 UNIT TABLET PO SCH (08:07)
[2023-03-03] MEDS: SILVER SULFADIAZINE 1%, 25 GM TOPICAL CREAM (SSD) TP SCH ×2 (08:07→21:24)
[2023-03-03] MEDS: ARIPiprazole 5 MG TAB PO SCH ×2 (08:07→20:54)
[2023-03-03] MEDS: HONEY WOUND DRESSING 1 EACH TP SCH ×2 (08:08→21:24)
[2023-03-03] MEDS ORDERED: APIXABAN 2.5 MG TABLET PO ONE (14:00)
[2023-03-03] MEDS: NACL 0.9% 1,000 ML IV SCH (14:01)
[2023-03-03] MEDS: ONDANSETRON HCL 4 MG/2 ML VIAL IVP PRN (19:59)
[2023-03-03] MEDS: APIXABAN 2.5 MG TABLET PO SCH (20:55)
[2023-03-03] MEDS: QUEtiapine FUMARATE 25 MG TABLET PO ONE ×2 (22:15→22:26)
[2023-03-04] VITALS (10 sets, daily range): BP systolic 132–151; PULSE 92–104; RESP 16–20; TEMP 97.6–99; O2SAT 96–100
[2023-03-04] MEDS: NAFCILLIN SODIUM 2 GM in NS 100 ML IV SCH ×4 (00:14→17:29)
[2023-03-04] MEDS: IPRATROPIUM/ALBUTEROL SULFATE 3 ML AMPUL.NEB (DUONEB) INH SCH ×4 (01:00→19:00)
[2023-03-04 06:04] LABS: BASOPHILS # (AUTO) 0.1 K/uL (0.0-0.2); BASOPHILS % (AUTO) 2.7 % (0.0-2.0); EOSINOPHILS # (AUTO) 0.2 K/uL (0.0-0.4); EOSINOPHILS % (AUTO) 5.2 % (0.0-4.0); HEMATOCRIT 26.1 % (36-48); HEMOGLOBIN 8.6 g/dL (12.0-16.0); LYMPHOCYTES # (AUTO) 1.5 K/uL (1.0-5.5); LYMPHOCYTES % (AUTO) 33.4 % (20.5-51.5); MEAN CORPUSCULAR HEMOGLOBIN 29 pg (27-31); MEAN CORPUSCULAR HGB CONC 33 % (32-36); MEAN CORPUSCULAR VOLUME 88 fL (79.0-98.0); MONOCYTES # (AUTO) 0.4 K/uL (0.0-1.0); MONOCYTES % (AUTO) 9.7 % (1.7-9.3); NEUTROPHILS # (AUTO) 2.3 K/uL (1.8-7.7); PLATELET COUNT (AUTO) 431 K/uL (130-430); RED BLOOD CELL COUNT(AUTO) 2.96 MIL/uL (4.2-6.2); RED CELL DISTRIBUTION WIDTH 13.5 % (9.0-15.0); WHITE BLOOD COUNT (AUTO) 4.6 K/uL (4.8-10.8)
[2023-03-04] MEDS: LEVOTHYROXINE SODIUM 0.075 MG TABLET PO SCH (06:09)
[2023-03-04] MEDS: CHOLECALCIFEROL (VITAMIN D3) 5,000 UNIT TABLET PO SCH (09:16)
[2023-03-04] MEDS: ARIPiprazole 5 MG TAB PO SCH ×2 (09:16→22:07)
[2023-03-04] MEDS: CALCIUM ACETATE 667 MG CAP PO SCH ×3 (09:16→17:27)
[2023-03-04] MEDS: LACTULOSE 20 GM/30 ML UDC PO SCH ×2 (09:18→21:00)
[2023-03-04] MEDS: APIXABAN 2.5 MG TABLET PO SCH ×2 (09:20→22:10)
[2023-03-04] MEDS: NACL 0.9% 1,000 ML IV SCH (11:00)
[2023-03-04] MEDS: HONEY WOUND DRESSING 1 EACH TP SCH ×2 (11:22→22:08)
[2023-03-04] MEDS: SILVER SULFADIAZINE 1%, 25 GM TOPICAL CREAM (SSD) TP SCH ×2 (11:23→22:08)
[2023-03-04] MEDS: INSULIN LISPRO SLIDING SCALE 100 UNITS/ML, 3 ML VIAL (humaLOG) SUBCUT PRN (11:36)
[2023-03-04] MEDS ORDERED: QUEtiapine FUMARATE 25 MG TABLET PO PRN (21:15)
[2023-03-05] VITALS (7 sets, daily range): BP systolic 122–157; PULSE 89–153; RESP 16–19; TEMP 97.5–98.4; O2SAT 96–99
[2023-03-05] MEDS: NAFCILLIN SODIUM 2 GM in NS 100 ML IV SCH ×2 (00:21→06:02)
[2023-03-05] MEDS: IPRATROPIUM/ALBUTEROL SULFATE 3 ML AMPUL.NEB (DUONEB) INH SCH ×4 (00:36→19:00)
[2023-03-05] MEDS: NACL 0.9% 1,000 ML IV SCH (06:01)
[2023-03-05] MEDS: LEVOTHYROXINE SODIUM 0.075 MG TABLET PO SCH (06:13)
[2023-03-05] MEDS: INSULIN LISPRO SLIDING SCALE 100 UNITS/ML, 3 ML VIAL (humaLOG) SUBCUT PRN ×2 (06:15→18:04)
[2023-03-05] MEDS: LACTULOSE 20 GM/30 ML UDC PO SCH ×2 (08:36→23:08)
[2023-03-05] MEDS: ARIPiprazole 5 MG TAB PO SCH ×2 (08:37→23:08)
[2023-03-05] MEDS: APIXABAN 2.5 MG TABLET PO SCH ×2 (08:38→23:10)
[2023-03-05] MEDS ORDERED: NOR10 PO (08:43)
[2023-03-05] MEDS ORDERED: APIX5TAB PO (08:43)
[2023-03-05] MEDS ORDERED: ARIP5TAB10 PO (08:43)
[2023-03-05] MEDS: CHOLECALCIFEROL (VITAMIN D3) 5,000 UNIT TABLET PO SCH (08:47)
[2023-03-05] MEDS: CALCIUM ACETATE 667 MG CAP PO SCH ×3 (08:48→17:54)
[2023-03-05] MEDS: SILVER SULFADIAZINE 1%, 25 GM TOPICAL CREAM (SSD) TP SCH ×2 (09:00→21:00)
[2023-03-05] MEDS: HONEY WOUND DRESSING 1 EACH TP SCH ×2 (09:00→21:00)
[2023-03-05] MEDS: METOPROLOL TARTRATE 25 MG TABLET PO SCH ×2 (10:10→23:15)
[2023-03-05] MEDS: amLODIPine BESYLATE 10 MG TABLET PO SCH (10:11)
[2023-03-05] MEDS: ceFAZolin SODIUM 1 GM in D5W 50 ML IV SCH (10:27)
[2023-03-05] MEDS ORDERED: CEFA1FRO IV (16:43)
[2023-03-06] VITALS (7 sets, daily range): BP systolic 132–138; PULSE 63–94; RESP 16–20; TEMP 98–99.7; O2SAT 97–99
[2023-03-06] MEDS: IPRATROPIUM/ALBUTEROL SULFATE 3 ML AMPUL.NEB (DUONEB) INH SCH ×4 (00:44→19:00)
[2023-03-06] MEDS: NACL 0.9% 1,000 ML IV SCH (04:19)
[2023-03-06] MEDS: LEVOTHYROXINE SODIUM 0.075 MG TABLET PO SCH (06:36)
[2023-03-06] MEDS: CALCIUM ACETATE 667 MG CAP PO SCH ×3 (08:00→17:39)
[2023-03-06] MEDS: SILVER SULFADIAZINE 1%, 25 GM TOPICAL CREAM (SSD) TP SCH (09:00)
[2023-03-06] MEDS: LACTULOSE 20 GM/30 ML UDC PO SCH (09:00)
[2023-03-06] MEDS: HONEY WOUND DRESSING 1 EACH TP SCH (09:00)
[2023-03-06] MEDS: ARIPiprazole 5 MG TAB PO SCH (09:19)
[2023-03-06] MEDS: amLODIPine BESYLATE 10 MG TABLET PO SCH (09:21)
[2023-03-06] MEDS: METOPROLOL TARTRATE 25 MG TABLET PO SCH (09:22)
[2023-03-06] MEDS: ceFAZolin SODIUM 1 GM in D5W 50 ML IV SCH (09:25)
[2023-03-06] MEDS: APIXABAN 2.5 MG TABLET PO SCH (09:43)
[2023-03-06] MEDS: CHOLECALCIFEROL (VITAMIN D3) 5,000 UNIT TABLET PO SCH (09:47)
[2023-03-07] MEDS ORDERED: LEVOTHYROXINE SODIUM 0.1 MG TABLET PO SCH (07:00)
== END 2023-03-06 20:50 | disposition home health service (06) | DRG 853 ==
LOC: SED 10:07 → SIC 13:10 → STU 02-25 12:26 → SMU 03-05 12:30
PROVIDERS: ADMIT General Practice; ATTEND General Practice
PROC: 0B9F8ZX Drainage of Right Lower Lung Lobe, Via Natural or Artificial Opening Endoscopic, Diagnostic (ICD-10-PCS; 2023-02-14)
PROC: 0BH17EZ Insertion of Endotracheal Airway into Trachea, Via Natural or Artificial Opening (ICD-10-PCS; 2023-02-14)
PROC: 5A1955Z Respiratory Ventilation, Greater than 96 Consecutive Hours (ICD-10-PCS; 2023-02-14)
PROC: 02HV33Z Insertion of Infusion Device into Superior Vena Cava, Percutaneous Approach (ICD-10-PCS; 2023-02-16)
PROC: B548ZZA Ultrasonography of Superior Vena Cava, Guidance (ICD-10-PCS; 2023-02-16)
PROC: 5A1D70Z Performance of Urinary Filtration, Intermittent, Less than 6 Hours Per Day (ICD-10-PCS; 2023-02-16)
PROC: 5A1D70Z Performance of Urinary Filtration, Intermittent, Less than 6 Hours Per Day (ICD-10-PCS; 2023-02-17)
PROC: 5A1D70Z Performance of Urinary Filtration, Intermittent, Less than 6 Hours Per Day (ICD-10-PCS; 2023-02-19)
PROC: 0HDGXZZ Extraction of Left Hand Skin, External Approach (ICD-10-PCS; 2023-02-20)
PROC: 5A1D70Z Performance of Urinary Filtration, Intermittent, Less than 6 Hours Per Day (ICD-10-PCS; 2023-02-21)
PROC: 5A1D70Z Performance of Urinary Filtration, Intermittent, Less than 6 Hours Per Day (ICD-10-PCS; 2023-02-23)
PROC: 5A1D70Z Performance of Urinary Filtration, Intermittent, Less than 6 Hours Per Day (ICD-10-PCS; 2023-02-24)
PROC: 0KDD0ZZ Extraction of Left Hand Muscle, Open Approach (ICD-10-PCS; principal; 2023-02-26 11:50)
PROC: 5A1D70Z Performance of Urinary Filtration, Intermittent, Less than 6 Hours Per Day (ICD-10-PCS; 2023-02-27)
PROC: 5A1D70Z Performance of Urinary Filtration, Intermittent, Less than 6 Hours Per Day (ICD-10-PCS; 2023-03-01)
PROC: 02PYX3Z Removal of Infusion Device from Great Vessel, External Approach (ICD-10-PCS; 2023-03-02)
PROC: 02HV33Z Insertion of Infusion Device into Superior Vena Cava, Percutaneous Approach (ICD-10-PCS; 2023-03-02)
PROC: B518ZZA Fluoroscopy of Superior Vena Cava, Guidance (ICD-10-PCS; 2023-03-02)
PROC: 5A1D70Z Performance of Urinary Filtration, Intermittent, Less than 6 Hours Per Day (ICD-10-PCS; 2023-03-03)
PROC: 5A1D70Z Performance of Urinary Filtration, Intermittent, Less than 6 Hours Per Day (ICD-10-PCS; 2023-03-05)
DX: A41.9 Sepsis, unspecified organism (principal); E11.10 Type 2 diabetes mellitus with ketoacidosis without coma; N17.0 Acute kidney failure with tubular necrosis; R65.21 Severe sepsis with septic shock; J96.01 Acute respiratory failure with hypoxia; F33.3 Major depressive disorder, recurrent, severe with psychotic symptoms; L02.512 Cutaneous abscess of left hand; Z68.42 Body mass index [BMI] 45.0-49.9, adult; E87.1 Hypo-osmolality and hyponatremia; L03.114 Cellulitis of left upper limb; I82.812 Embolism and thrombosis of superficial veins of left lower extremity; Z99.11 Dependence on respirator [ventilator] status; E83.41 Hypermagnesemia; E83.51 Hypocalcemia; E83.52 Hypercalcemia; E87.6 Hypokalemia; E88.09 Other disorders of plasma-protein metabolism, not elsewhere classified; E11.22 Type 2 diabetes mellitus with diabetic chronic kidney disease; E66.01 Morbid (severe) obesity due to excess calories; A46 Erysipelas; D64.9 Anemia, unspecified; D75.839 Thrombocytosis, unspecified; E03.9 Hypothyroidism, unspecified; Z20.822 Contact with and (suspected) exposure to COVID-19; E83.39 Other disorders of phosphorus metabolism; J44.9 Chronic obstructive pulmonary disease, unspecified; R13.10 Dysphagia, unspecified; F15.10 Other stimulant abuse, uncomplicated; Z72.0 Tobacco use; Z79.4 Long term (current) use of insulin; Z86.718 Personal history of other venous thrombosis and embolism; Z91.128 Patient's intentional underdosing of medication regimen for other reason; Z91.199 Patient's noncompliance with other medical treatment and regimen due to unspecified reason; Z99.2 Dependence on renal dialysis
CPT/HCPCS: 36415; 36600; 70450-TC; 71045; 73090; 74018; 76000; 76376; 76700-TC; 76856-TC; 80048; 80053; 80074; 80202; 80307; 81000; 82009; 82140; 82272; 82306; 82607; 82728; 82746; 82803; 82962; 83037; 83540; 83550; 83605; 83735; 83880; 84100; 84436; 84443; 84484; 85007; 85025; 85027; 85044; 85379; 85384; 85610-TC; 85651-TC; 85730-TC; 86403; 86480; 86706; 87040; 87070-TC; 87075-TC; 87081; 87086; 87186-TC; 87340; 90935; 90937; 92610-GN; 93005; 93306; 93312; 93970; 93971; 94002; 94003; 94640; 94760; 96361; 96365; 96367; 97110-GP; 97112-GP; 97116-GP; 97163-GP; 97530-GP; 99291; A6209; C1750; C1751; G0378; G0480; G0481; G0482; J0610; J0690; J0692; J0712; J1100; J1170; J1450; J1644; J1815; J1940; J2001; J2020; J2060; J2250; J2270; J2370; J2405; J2543; J2704; J2765; J3010; J3370; J3465; J3480; J3490; J7030; J7050; J7060; J7120